=== PATIENT | female | born 1965 | race Caucasian/White ===

== ENCOUNTER 2016-12-26 21:25 | Emergency (ER) | payer OTHER ==
[~2016-12-26] VITALS: Ht 165.1 cm; Wt 113.2 kg
[2016-12-26 21:25] VITALS: TEMP 36.7; Ht 165.1 cm; Wt 113.2 kg
[~2016-12-26 21:25] MED LIST: LEVO175T3 PO; OXYC-57 PO; SERTPOW PO; TRAZ100T29 PO; [UNRECOGNIZED DRUG - OTHER] PO
[2016-12-26 21:54] LABS: MANUAL MICROSCOPIC REQUIRED? NO; REVIEW REQ? NO; URINE APPEARANCE CLEAR (CLEAR); URINE BILIRUBIN NEG (NEG); URINE COLOR DK YELLOW; URINE EPITHELIAL CELL AUTO >30 /lpf (0-5); URINE NITRITE NEG (NEG); URINE PH 5.5 (4.5-7.5); URINE SPECIFIC GRAVITY 1.029 (1.000-1.030); UROBILINOGEN NEG (NEG); ZZUR CULT IF INDIC CLEAN CATCH NO
[2016-12-26 22:12] LABS: BASO ABS # 0.09 K/uL (0-0.2); COMPLETE YES; EOS % 1.8 %; HEMATOCRIT 43.7 % (37-47); IG% 0.2 %; LYMPH % 24.5 %; LYMPH ABS # 2.19 K/uL (1.2-3.4); MEAN CELL VOLUME 91.6 fL (80-100); MEAN CORPUSCULAR HEMOGLOBIN 30.8 pg (25-34); MEAN CORPUSCULAR HGB CONC 33.6 g/dl (32-36); MEAN PLATELET VOLUME 9.7 fL (7.4-10.4); MONO % 7.2 %; NEUT % 65.3 %; PLATELET COUNT 224 K/uL (130-400); RED BLOOD COUNT 4.77 M/uL (4.2-5.4); WHITE BLOOD COUNT 8.93 K/uL (4.8-10.8)
[2016-12-26 22:20] LABS: BENZODIAZEPINE, URINE NEG (NEG); COCAINE,URINE NEG (NEG); PHENCYCLIDINE, URINE NEG (NEG)
[2016-12-26 22:30] LABS: CALCIUM 9.1 mg/dl (8.5-10.1)
[2016-12-26 22:32] LABS: BUN/CREATININE RATIO 16.2 (10-20); CREATININE 0.95 mg/dl (0.60-1.20); POTASSIUM 3.7 mmol/L (3.5-5.1)
[2016-12-26 22:38] LABS: ACETAMINOPHEN < 2 ug/ml (10-30)
[2016-12-26 22:42] LABS: ALB/GLOB RATIO 1.2 (0.9-2); THYROID STIMULATING HORMONE 1.81 uIu/ml (0.300-4.500)
--- NOTE | 2016-12-27 00:56 | EMERGENCY ROOM VISIT NOTE ---
History Report prepared by Екатерина: Lula Puente Under the Supervision of: Dr. Itz Lawson M.D. First contact with patient: 22:40 Chief Complaint: MENTAL HEALTH EVALUATION Stated Complaint: MHID History of Present Illness The patient is a 51 year old female who presents to the Emergency Room with complaints of worsening depression for the past 3 weeks. She arrives to the ED by EMS from home. The patient has had increased suicidal thoughts recently with thoughts of hanging herself. She denies having a plan to hurt herself. The nursing notes indicate that the patient has verbalized a plan to hang herself and the employees at her home are concerned that they cannot keep the patient safe. She currently lives in a assisted. She has a history of depression. She has been under increased stress recently with looking for an apartment. She denies any history of bipolar or schizophrenia. She has a history of hypothyroidism. She denies any history of hypertension. She denies any fever, chest pain, vomiting, abdominal pain, or urinary symptoms. Source of History: patient, nursing staff Onset: 3 weeks Position: other (mental health) Quality: other (depression) Timing: worsening Associated Symptoms: No fevers, No chest pain, No vomiting, No abdominal pain, No urinary symptoms Note: Pt reports suicidal ideation. Review of Systems See HPI for pertinent positives & negatives. A total of 10 systems reviewed and were otherwise negative. Past Medical & Surgical Medical Problems: (1) Alcoh Dep Nec/Nos-Unspec (2) Anxiety State Nos (3) Bipol I, Most Recent Episode (Or Current) Unspecified (4) Depressive Disorder Nec (5) Depressive Disorder Nec (6) Tobacco Use Disorder Surgical Problems: (1) Tubal Ligation Status Family History Diabetes mellitus Heart disease Social History Smoking Status: Current Every Day Smoker Alcohol Use: occasionally Marital Status: Housing Status: unknown Occupation Status: employed Current/Historical Medications Scheduled Levothyroxine Sodium (Levothyroxine Sodium), 175 MCG PO DAILY Sertraline Hcl (Bulk) (Sertraline Hcl), 150 MG PO DAILY Trazodone Hcl (Trazodone), 100 MG PO HS [trinitellix], 20 MG PO DAILY Scheduled PRN Oxycodone/Acetaminophen 5MG/325MG (Percocet 5MG/325MG), 1 TABLET PO Q4H PRN for Pain Allergies Coded Allergies: Sulfa Antibiotics (Verified Allergy, Intermediate, SULFA ALLERGY - UNKOWN , 01/30/16) Cephalexin (Verified Allergy, Unknown, Rash., 01/30/16) Reported by PT. Nitrofurantoin (Verified Adverse Reaction, Intermediate, VOMITING, DIARRHEA, 01/30/16) Physical Exam Vital Signs Date Time Temp Pulse Resp B/P (MAP) Pulse Ox O2 Delivery O2 Flow Rate FiO2 12/26/16 21:25 36.7 89 18 143/92 97 Room Air Physical Exam Constitutional: Vital signs reviewed. Eyes: Pupils are equal round reactive to light. Conjunctiva are noninjected. ENT: Pharynx is clear without erythema or exudate. Mucous membranes are moist. Neck supple without meningeal signs. Respiratory: Clear to auscultation bilaterally. Breath sounds are equal bilaterally. Cardiovascular: Regular rate and rhythm. No rubs or gallops. GI: Soft, nondistended and nontender. Bowel sounds are present. Musculoskeletal: No peripheral edema. No lower extremity tenderness. Integumentary: No cyanosis. Neurological: The patient is awake and alert. No focal deficits. Psychiatric: Depressed affect. She is not tearful. Medical Decision & Procedures Laboratory Results 12/26/16 22:00 Red Blood Count 4.77, Mean Corpuscular Volume 91.6, Mean Corpuscular Hemoglobin 30.8, Mean Corpuscular Hemoglobin Concent 33.6, Mean Platelet Volume 9.7, Neutrophils (%) (Auto) 65.3, Lymphocytes (%) (Auto) 24.5, Monocytes (%) (Auto) 7.2, Eosinophils (%) (Auto) 1.8, Basophils (%) (Auto) 1.0, Neutrophils # (Auto) 5.83, Lymphocytes # (Auto) 2.19, Monocytes # (Auto) 0.64, Eosinophils # (Auto) 0.16, Basophils # (Auto) 0.09 12/26/16 22:00 Test 12/26/16 21:30 12/26/16 22:00 Urine Color DK YELLOW Urine Appearance CLEAR (CLEAR) Urine pH 5.5 (4.5-7.5) Urine Specific [place] 1.029 (1.000-1.030) Urine Protein NEG (NEG) Urine Glucose (UA) NEG (NEG) Urine Ketones TRACE (NEG) Urine Occult Blood NEG (NEG) Urine Nitrite NEG (NEG) Urine Bilirubin NEG (NEG) Urine Urobilinogen NEG (NEG) Urine Leukocyte Esterase TRACE (NEG) Urine WBC (Auto) 5-10 /hpf (0-5) Urine RBC (Auto) 0-4 /hpf (0-4) Urine Hyaline Casts (Auto) 5-10 /lpf (0-5) Urine Epithelial Cells (Auto) >30 /lpf (0-5) Urine Bacteria (Auto) NEG (NEG) Urine Opiates Screen NEG (NEG) Urine Methadone, Qualitative NEG (NEG) Urine Barbiturates NEG (NEG) Urine Phencyclidine (PCP) Level NEG (NEG) Ur Amphetamine/Methamphetamine NEG (NEG) MDMA (Ecstasy) Screen POS (NEG) Urine Benzodiazepines Screen NEG (NEG) Urine Cocaine Metabolite NEG (NEG) Urine Marijuana (THC) NEG (NEG) White Blood Count 8.93 K/uL (4.8-10.8) Red Blood Count 4.77 M/uL (4.2-5.4) Hemoglobin 14.7 g/dL (12.0-16.0) Hematocrit 43.7 % (37-47) Mean Corpuscular Volume 91.6 fL (80-100) Mean Corpuscular Hemoglobin 30.8 pg (25-34) Mean Corpuscular Hemoglobin Concent 33.6 g/dl (32-36) Platelet Count 224 K/uL (130-400) Mean Platelet Volume 9.7 fL (7.4-10.4) Neutrophils (%) (Auto) 65.3 % Lymphocytes (%) (Auto) 24.5 % Monocytes (%) (Auto) 7.2 % Eosinophils (%) (Auto) 1.8 % Basophils (%) (Auto) 1.0 % Neutrophils # (Auto) 5.83 K/uL (1.4-6.5) Lymphocytes # (Auto) 2.19 K/uL (1.2-3.4) Monocytes # (Auto) 0.64 K/uL (0.11-0.59) Eosinophils # (Auto) 0.16 K/uL (0-0.5) Basophils # (Auto) 0.09 K/uL (0-0.2) RDW Standard Deviation 43.6 fL (36.4-46.3) RDW Coefficient of Variation 13.1 % (11.5-14.5) Immature Granulocyte % (Auto) 0.2 % Immature Granulocyte # (Auto) 0.02 K/uL (0.00-0.02) Anion Gap 8.0 mmol/L (3-11) Est Creatinine Clear Calc Drug Dose 85.9 ml/min Estimated GFR () 79.3 Estimated GFR (Non- 68.4 BUN/Creatinine Ratio 16.2 (10-20) Calcium Level 9.1 mg/dl (8.5-10.1) Total Bilirubin 0.4 mg/dl (0.2-1) Aspartate Amino Transf (AST/SGOT) 10 U/L (15-37) Alanine Aminotransferase (ALT/SGPT) 18 U/L (12-78) Alkaline Phosphatase 61 U/L (45-117) Total Protein 7.1 gm/dl (6.4-8.2) Albumin 3.8 gm/dl (3.4-5.0) Globulin 3.3 gm/dl (2.5-4.0) Albumin/Globulin Ratio 1.2 (0.9-2) Thyroid Stimulating Hormone (TSH) 1.810 uIu/ml (0.300-4.500) Salicylates Level 3.7 mg/dl (2.8-20) Acetaminophen Level < 2 ug/ml (10-30) Ethyl Alcohol mg/dL < 3.0 mg/dl (0-3) Laboratory results as reviewed by me. ED Course 2241: The patient was evaluated in room A7. A complete history and physical exam was performed. 2258: The patient has been accepted to [facility] for transfer. 2305: I reevaluated the patient. I discussed the results and treatment plan with her. She will be transferred to [facility] for further care. Transportation will come for her around 0230. Medical Decision This is a 51-year-old female sent to the emergency department for medical clearance. She has been accepted at [facility] psychiatric facility. I did perform a limited focused review of portions of the patient's old chart on the electronic medical record. The patient has had no recent pertinent visits to this hospital. Medication Reconciliation: I attest that I have personally reviewed the patient' s current medication list. Blood Pressure Screening: Patient was found to have an elevated blood pressure and was referred to their primary doctor for recheck and further treatment. I did evaluate the patient as noted above. A urinalysis was sent which appears to be a nonsterile specimen. She denies any urinary symptoms. I did order and review the patient's blood work as noted in the electronic medical record. I did medically clear the patient. She will be transferred securely to [facility] for inpatient psychiatric care. Impression Primary Impression: Mood disorder Additional Impression: Suicidal ideation Scribe Attestation The scribe's documentation has been prepared under my direct and personally reviewed by me in its entirety. I confirm that the note above accurately reflects all work, treatment, procedures, and medical decision making performed by me. Departure Information Dispostion Mental Health Acute Care Referrals Oliver Guthrie III, M.D. (PCP) Forms HOME CARE DOCUMENTATION FORM, IMPORTANT VISIT INFORMATION Patient Instructions My [facility] Problem Qualifiers
[2016-12-27] MEDS ORDERED: BUPRTAB51 PO (01:47)
[2016-12-27] MEDS ORDERED: VORT1TAB3 PO (01:47)
[2016-12-27] MEDS ORDERED: LEVO150T9 PO (01:47)
[2016-12-27] MEDS ORDERED: TRAZ50TA35 PO (01:48)
[2016-12-27] MEDS ORDERED: ABL10 PO (01:48)
[2016-12-27 03:42] VITALS: BP 140/97; PULSE 84; O2SAT 97
== END 2016-12-27 03:35 | disposition short-term general hospital (02) ==
LOC: EDBD 21:25 → C.EDA 21:26
DX: F31.9 Bipolar disorder, unspecified (principal); R45.851 Suicidal ideations; E03.9 Hypothyroidism, unspecified; F41.9 Anxiety disorder, unspecified; F17.210 Nicotine dependence, cigarettes, uncomplicated; Z98.51 Tubal ligation status; Z83.3 Family history of diabetes mellitus; Z79.899 Other long term (current) drug therapy

== ENCOUNTER 2022-04-02 14:44 | Inpatient (IN) ==
[2022-04-02 15:46] LABS: Appearance Urine Clear (Clear); Bacteria Urine Automated Negative (Negative); Bilirubin Urine Negative (Negative); Blood Urine Negative (Negative); Color Urine Yellow; Epithelial Cell Urine Auto 20-30 /lpf (0-5); Glucose Urine UA Negative (Negative); Ketones Urine Negative (Negative); Leukocyte Esterase Urine Trace (Negative); Nitrite Urine Negative (Negative); Protein Urine Negative (Negative); RBC Urine Automated 0-4 /hpf (0-4); Specific Gravity Urine 1.006 (1.000-1.030); Urobilinogen Urine Negative (Negative); pH Urine 5.5 (4.5-7.5)
[2022-04-02 16:00] LABS: Basophils # (auto) 0.11 K/uL (0-0.2); Basophils % (auto) 1.7 %; Eosinophils # (auto) 0.09 K/uL (0-0.50); Eosinophils % (auto) 1.4 %; Hematocrit (blood only) 47.4 % (34.1-44.9); Hemoglobin 16.4 g/dl (12.0-16.0); Immature Granulocytes # (auto) 0.02 K/uL (0.00-0.02); Immature Granulocytes % (auto) 0.3 %; Lymphocytes # (auto) 2.25 K/uL (1.2-3.4); Lymphocytes % (auto) 34.5 %; Mean Corpuscular Hemoglobin 31.1 pg (25.0-34.0); Mean Corpuscular Hgb Conc 34.6 g/dL (32.0-36.0); Mean Corpuscular Volume 89.9 fL (80.0-100.0); Mean Platelet Volume 9.4 fL (9.4-12.3); Monocytes # (auto) 0.56 K/uL (0.24-0.82); Monocytes % (auto) 8.6 %; Neutrophils # (auto) 3.49 K/uL (1.4-6.5); Neutrophils % (auto) 53.5 %; Platelet Count 374 K/uL (130-400); RDW Coefficient of Variation 13.8 % (11.5-14.5); RDW Standard Deviation 45.2 fL (36.4-46.3); Red Blood Count 5.27 M/uL (3.93-5.22); White Blood Count 6.52 K/ul (4.8-10.8)
[2022-04-02 16:01] LABS: Amphetamines+Metham, Urine Neg (Neg); Barbiturates, Urine Neg (Neg); Benzodiazepine, Urine Neg (Neg); Cocaine, Urine Neg (Neg); MDMA (Ecstacy), Urine Neg (Neg); Methadone, Urine Neg (Neg); Opiate, Urine Neg (Neg); Phencyclidine, Urine Neg (Neg)
[2022-04-02 16:30] LABS: Acetaminophen < 3 ug/ml (10-30); Salicylate < 3.0 mg/dl (3.0-30)
[2022-04-02 16:31] LABS: Albumin Globulin Ratio 1.3 (0.9-2); Albumin Level 4.3 gm/dl (3.4-5.0); BUN Creatinine Ratio 11.7 (10-20); Bilirubin,Total 0.5 mg/dl (0.2-1.0); Calcium 9.3 mg/dl (8.5-10.1); Creatinine Clr Calc Pharmacy 217.1 ml/min; Est GFR (African American) 115.6 ml/min; Est GFR (Non-African American) 99.8 ml/min; Globulin 3.4 gm/dl (2.5-4.0); Potassium 3.2 mmol/L (3.5-5.1); Total Protein 7.7 gm/dl (6.0-8.3)
[2022-04-02] MEDS ORDERED: POTASSIUM CHLORIDE 10 MEQ TABCR PO STA (17:35)
--- NOTE | 2022-04-02 17:35 | Emergency Department Note ---
History of Present Illness General Chief complaint: Mental Health Evaluation Stated complaint: suicidal ideation Time Seen by Provider: 04/02/22 14:55 History of Present Illness Provider complaint: suicidal ideation Onset (ago): year(s) 57-year-old female presents emergency department for mental health evaluation. Patient reports that she has been depressed for many years she has been having suicidal ideation for the last many years. Patient reports over the last 2 weeks with some increasing worse. Patient states she tried to overdose 2 weeks ago on Effexor. Patient states she also has plans to hang herself. Patient does admitting to drinking a pint of Contour prior to arrival. No access to guns. History of depression. Home Medications Medication Instructions Recorded Confirmed Type brexpiprazole 1 mg tablet (Rexulti) 1 mg PO QAM 02/23/21 04/02/22 History buspirone 10 mg tablet 10 mg PO BID 02/23/21 04/02/22 History clonazepam 1 mg tablet 1 mg PO TID 02/23/21 04/02/22 History levothyroxine 200 mcg tablet 200 mcg PO QAM 02/23/21 04/02/22 History Allergies Allergy/AdvReac Type Severity Reaction Status Date / Time Sulfa (Sulfonamide Allergy Intermediate SULFA Verified 02/23/21 09:47 Antibiotics) ALLERGY - UNKOWN cephalexin Allergy Unknown Rash. Verified 02/23/21 09:47 nitrofurantoin AdvReac Intermediate VOMITING, Verified 02/23/21 09:47 DIARRHEA Past Med/Surg History Medical History Depression Homelessness No pertinent family history Suicidal ideation Surgical History No significant past surgical history Social History Smoking Status: Current every day smoker Tobacco Type: Cigarettes Preferred Language: Armenian Feels Safe at Home: Yes Review of Systems A total of 10 systems reviewed and were otherwise negative Physical Exam Vital Signs Vital Signs - 24 hr 04/02/22 14:49 Pulse Rate 95 H Pulse Rhythm Regular Pulse Strength Normal Respiratory Rate 22 Respiratory Effort / Characteristics Non-Labored Spontaneous Respiratory Depth Normal Respiratory Pattern Regular Blood Pressure 115/86 Blood Pressure Mean 95 Pulse Oximetry 97 Oxygen Delivery Method Room Air Sepsis Recent Fever Within 48 Hours No Sepsis New/Unexplained Change in Mental Status N/A Sepsis Action Taken by Nursing No Action Required Physical Exam GENERAL: She is oriented to person, place, and time. She appears well-developed and well-nourished. She does not appear distressed. HENT: Exam performed. -Head: Normocephalic and atraumatic. -Right Ear: External ear normal. No mastoid tenderness. -Left Ear: External ear normal. No mastoid tenderness. -Mouth/Throat: The oropharynx is clear and moist. No trismus in the jaw. No dental abscesses or uvula swelling. No oropharyngeal exudate or tonsillar abscesses. EYES: Conjunctivae and EOM are normal. Pupils are equal, round, and reactive to light. Right eye exhibits no discharge. Left eye exhibits no discharge. No scleral icterus. NECK: Normal range of motion. Neck supple. No JVD present. No spinous process tenderness present. No carotid bruit present. No rigidity. No tracheal deviation and normal range of motion present. No Brudzinski's sign and no Kernig's sign noted. CV: Normal rate, regular rhythm, normal heart sounds and intact distal pulses. There is no peripheral edema. Palpable radial pulses bue. PULM/CHEST: Effort normal and breath sounds normal. No respiratory distress. No stridor. She has no wheezes. She has no rales. -Chest Wall: She exhibits no tenderness. ABD: The abdomen is soft. Bowel sounds are normal. She has no distension. No mass is present. There is no tenderness. There is no rebound, no guarding, no Jimenez's sign and no tenderness at McBurney's point. Rovsig negative MUSC/SKEL: Normal range of motion. There is no peripheral edema, tenderness or deformity. LYMPH: No cervical adenopathy. NEURO: She is alert and oriented to person, place, and time. She has normal strength. No cranial nerve deficit or sensory deficit. Coordination and gait normal. GCS eye subscore is 4. GCS verbal subscore is 5. GCS motor subscore is 6. Cerebellar tests wnl. SKIN: Skin is warm and dry. She is not diaphoretic. PSYCH: Patient appears depressed and is reporting suicidal ideation. Course Course 1455: The patient was evaluated in room A6. A complete history and physical exam was performed 1740: Vital signs stable. Potassium 3.2 otherwise labs are within normal limits. Potassium replaced in the emergency department. Serum EtOH 157. Patient will be medically cleared at 1830 from alcohol perspective and will be evaluated by psychiatric case management coordinator at that time. Patient placed in observation at this time. 1933: Patient cleared for psychiatric evaluation awaiting psychiatric evaluation and possible placement. Case signed out to Dr. Thacker Administered Medications Nicotine (Nicotine 14 Mg/24 Hr Patch) 14 mg TD QAM UNIQUE Stop: 05/02/22 17:59 Last Admin: 04/02/22 18:07 Dose: 14 mg Documented By: NOMI Discontinued Medications Potassium Chloride (Potassium Chloride 10 Meq Tabcr) 40 meq PO NOW STA Stop: 04/02/22 17:36 Last Admin: 04/02/22 18:07 Dose: 20 meq Documented By: NOMI Medical Decision Making Laboratory Data Result diagrams: 04/02/22 15:32 04/02/22 15:32 Lab Results 04/02/22 04/02/22 04/02/22 Range/Units 15:04 15:04 15:32 WBC 6.52 (4.8-10.8) K/ul RBC 5.27 H (3.93-5.22) M/uL Hgb 16.4 H (12.0-16.0) g/dl Hct 47.4 H (34.1-44.9) % MCV 89.9 (80.0-100.0) fL MCH 31.1 (25.0-34.0) pg MCHC 34.6 (32.0-36.0) g/dL RDW Std Deviation 45.2 (36.4-46.3) fL RDW Coeff of Hollie 13.8 (11.5-14.5) % Plt Count 374 (130-400) K/uL MPV 9.4 (9.4-12.3) fL Immature Gran % (Auto) 0.3 % Neut % (Auto) 53.5 % Lymph % (Auto) 34.5 % [place] % (Auto) 8.6 % Eos % (Auto) 1.4 % Baso % (Auto) 1.7 % Neut # (Auto) 3.49 (1.4-6.5) K/uL Lymph # (Auto) 2.25 (1.2-3.4) K/uL [place] # (Auto) 0.56 (0.24-0.82) K/uL Eos # (Auto) 0.09 (0-0.50) K/uL Baso # (Auto) 0.11 (0-0.2) K/uL Immature Gran # (Auto) 0.02 (0.00-0.02) K/uL Sodium (136-145) mmol/L Potassium (3.5-5.1) mmol/L Chloride (98-107) mmol/L Carbon Dioxide (21-32) mmol/L Anion Gap (3-11) BUN (6-23) mg/dl Creatinine (0.6-1.2) mg/dl Est Cr Clr Drug Dosing ml/min Est GFR ( Amer) ml/min Est GFR (Non-Af Amer) ml/min BUN/Creatinine Ratio (10-20) Glucose (70-99(Fasting)) mg/dl Calcium (8.5-10.1) mg/dl Total Bilirubin (0.2-1.0) mg/dl AST (13-39) U/L ALT (7-52) U/L Alkaline Phosphatase (34-104) U/L Total Protein (6.0-8.3) gm/dl Albumin (3.4-5.0) gm/dl Globulin (2.5-4.0) gm/dl Albumin/Globulin Ratio (0.9-2) TSH (0.300-4.500) uIu/ml Urine Color Yellow Urine Appearance Clear (Clear) Urine pH 5.5 (4.5-7.5) Ur Specific [place] 1.006 (1.000-1.030) Urine Protein Negative (Negative) Urine Glucose (UA) Negative (Negative) Urine Ketones Negative (Negative) Urine Blood Negative (Negative) Urine Nitrite Negative (Negative) Urine Bilirubin Negative (Negative) Urine Urobilinogen Negative (Negative) Ur Leukocyte Esterase Trace H (Negative) Urine WBC (Auto) 1-5 (0-5) /hpf Urine RBC (Auto) 0-4 (0-4) /hpf U Hyaline Cast (Auto) 1-5 (0-5) /lpf U Epithel Cells (Auto) 20-30 H (0-5) /lpf Urine Bacteria (Auto) Negative (Negative) Salicylates (3.0-30) mg/dl Urine Opiates Screen Neg (Neg) Ur Methadone, Qual Neg (Neg) Acetaminophen (10-30) ug/ml Urine Barbiturates Neg (Neg) Ur Phencyclidine (PCP) Neg (Neg) U Amphetamin/Meth Scrn Neg (Neg) MDMA (Ecstasy) Screen Neg (Neg) U Benzodiazepines Scrn Neg (Neg) Ur Cocaine Metabolite Neg (Neg) U Marijuana (THC) Screen Neg (Neg) Ethyl Alcohol mg/dL (<10.0) mg/dl SARS-CoV-2 (PCR) (Negative) SARS-CoV-2 RNA (SASHA) 04/02/22 04/02/22 04/02/22 Range/Units 15:32 15:32 15:32 WBC (4.8-10.8) K/ul RBC (3.93-5.22) M/uL Hgb (12.0-16.0) g/dl Hct (34.1-44.9) % MCV (80.0-100.0) fL MCH (25.0-34.0) pg MCHC (32.0-36.0) g/dL RDW Std Deviation (36.4-46.3) fL RDW Coeff of Hollie (11.5-14.5) % Plt Count (130-400) K/uL MPV (9.4-12.3) fL Immature Gran % (Auto) % Neut % (Auto) % Lymph % (Auto) % [place] % (Auto) % Eos % (Auto) % Baso % (Auto) % Neut # (Auto) (1.4-6.5) K/uL Lymph # (Auto) (1.2-3.4) K/uL [place] # (Auto) (0.24-0.82) K/uL Eos # (Auto) (0-0.50) K/uL Baso # (Auto) (0-0.2) K/uL Immature Gran # (Auto) (0.00-0.02) K/uL Sodium 143 (136-145) mmol/L Potassium 3.2 L (3.5-5.1) mmol/L Chloride 105 (98-107) mmol/L Carbon Dioxide 24 (21-32) mmol/L Anion Gap 14 H (3-11) BUN 7 (6-23) mg/dl Creatinine 0.60 (0.6-1.2) mg/dl Est Cr Clr Drug Dosing 217.1 ml/min Est GFR ( Amer) 115.6 ml/min Est GFR (Non-Af Amer) 99.8 ml/min BUN/Creatinine Ratio 11.7 (10-20) Glucose 101 H (70-99(Fasting)) mg/dl Calcium 9.3 (8.5-10.1) mg/dl Total Bilirubin 0.5 (0.2-1.0) mg/dl AST 43 H (13-39) U/L ALT 43 (7-52) U/L Alkaline Phosphatase 92 (34-104) U/L Total Protein 7.7 (6.0-8.3) gm/dl Albumin 4.3 (3.4-5.0) gm/dl Globulin 3.4 (2.5-4.0) gm/dl Albumin/Globulin Ratio 1.3 (0.9-2) TSH 0.328 (0.300-4.500) uIu/ml Urine Color Urine Appearance (Clear) Urine pH (4.5-7.5) Ur Specific [place] (1.000-1.030) Urine Protein (Negative) Urine Glucose (UA) (Negative) Urine Ketones (Negative) Urine Blood (Negative) Urine Nitrite (Negative) Urine Bilirubin (Negative) Urine Urobilinogen (Negative) Ur Leukocyte Esterase (Negative) Urine WBC (Auto) (0-5) /hpf Urine RBC (Auto) (0-4) /hpf U Hyaline Cast (Auto) (0-5) /lpf U Epithel Cells (Auto) (0-5) /lpf Urine Bacteria (Auto) (Negative) Salicylates < 3.0 L (3.0-30) mg/dl Urine Opiates Screen (Neg) Ur Methadone, Qual (Neg) Acetaminophen < 3 L (10-30) ug/ml Urine Barbiturates (Neg) Ur Phencyclidine (PCP) (Neg) U Amphetamin/Meth Scrn (Neg) MDMA (Ecstasy) Screen (Neg) U Benzodiazepines Scrn (Neg) Ur Cocaine Metabolite (Neg) U Marijuana (THC) Screen (Neg) Ethyl Alcohol mg/dL (<10.0) mg/dl SARS-CoV-2 (PCR) (Negative) SARS-CoV-2 RNA (SASHA) 04/02/22 04/02/22 04/02/22 Range/Units 15:32 15:49 15:49 WBC (4.8-10.8) K/ul RBC (3.93-5.22) M/uL Hgb (12.0-16.0) g/dl Hct (34.1-44.9) % MCV (80.0-100.0) fL MCH (25.0-34.0) pg MCHC (32.0-36.0) g/dL RDW Std Deviation (36.4-46.3) fL RDW Coeff of Hollie (11.5-14.5) % Plt Count (130-400) K/uL MPV (9.4-12.3) fL Immature Gran % (Auto) % Neut % (Auto) % Lymph % (Auto) % [place] % (Auto) % Eos % (Auto) % Baso % (Auto) % Neut # (Auto) (1.4-6.5) K/uL Lymph # (Auto) (1.2-3.4) K/uL [place] # (Auto) (0.24-0.82) K/uL Eos # (Auto) (0-0.50) K/uL Baso # (Auto) (0-0.2) K/uL Immature Gran # (Auto) (0.00-0.02) K/uL Sodium (136-145) mmol/L Potassium (3.5-5.1) mmol/L Chloride (98-107) mmol/L Carbon Dioxide (21-32) mmol/L Anion Gap (3-11) BUN (6-23) mg/dl Creatinine (0.6-1.2) mg/dl Est Cr Clr Drug Dosing ml/min Est GFR ( Amer) ml/min Est GFR (Non-Af Amer) ml/min BUN/Creatinine Ratio (10-20) Glucose (70-99(Fasting)) mg/dl Calcium (8.5-10.1) mg/dl Total Bilirubin (0.2-1.0) mg/dl AST (13-39) U/L ALT (7-52) U/L Alkaline Phosphatase (34-104) U/L Total Protein (6.0-8.3) gm/dl Albumin (3.4-5.0) gm/dl Globulin (2.5-4.0) gm/dl Albumin/Globulin Ratio (0.9-2) TSH (0.300-4.500) uIu/ml Urine Color Urine Appearance (Clear) Urine pH (4.5-7.5) Ur Specific [place] (1.000-1.030) Urine Protein (Negative) Urine Glucose (UA) (Negative) Urine Ketones (Negative) Urine Blood (Negative) Urine Nitrite (Negative) Urine Bilirubin (Negative) Urine Urobilinogen (Negative) Ur Leukocyte Esterase (Negative) Urine WBC (Auto) (0-5) /hpf Urine RBC (Auto) (0-4) /hpf U Hyaline Cast (Auto) (0-5) /lpf U Epithel Cells (Auto) (0-5) /lpf Urine Bacteria (Auto) (Negative) Salicylates (3.0-30) mg/dl Urine Opiates Screen (Neg) Ur Methadone, Qual (Neg) Acetaminophen (10-30) ug/ml Urine Barbiturates (Neg) Ur Phencyclidine (PCP) (Neg) U Amphetamin/Meth Scrn (Neg) MDMA (Ecstasy) Screen (Neg) U Benzodiazepines Scrn (Neg) Ur Cocaine Metabolite (Neg) U Marijuana (THC) Screen (Neg) Ethyl Alcohol mg/dL 157.4 H (<10.0) mg/dl SARS-CoV-2 (PCR) NEGATIVE (Negative) SARS-CoV-2 RNA (SASHA) Cancelled MDM Narrative Observation note Indication: Psych eval/placement Patient, with depression was first seen at 1455 hrs and the observation time began at 1740 hrs and was necessary in order to have psych evaluation completed . Impression & Plan Depression with suicidal ideation Discharge Plan Visit Data Chief Complaint: Mental Health Evaluation Stated Complaint: suicidal ideation ED Provider: Jim Thacker Discharge Problem: Depression with suicidal ideation Patient Disposition: Still a Patient Forms Stand Alone Forms: My [facility], Suicide Prevention Resources Prescriptions Prescriptions: No Action clonazepam 1 mg tablet 1 mg PO TID buspirone 10 mg tablet 10 mg PO BID levothyroxine 200 mcg tablet 200 mcg PO QAM Rexulti 1 mg tablet 1 mg PO QAM Rx Instructions: has not taken since overdose -"several weeks" Referrals Referrals: Oliver Guthrie MD [Primary Care Provider] -
[2022-04-02] MEDS ORDERED: NICOTINE 14 MG/24 HR PATCH TD SCH (18:00)
[2022-04-02] MEDS ORDERED: clonazePAM 1 MG TAB PO PRN (20:14)
[2022-04-02] MEDS ORDERED: ACETAMINOPHEN 325 MG TAB PO PRN (20:58)
[2022-04-02] MEDS ORDERED: LORazepam 1 MG TAB PO PRN ×3 (20:58)
[2022-04-02] MEDS ORDERED: ALUMINUM/MAGNESIUM SUSP 30 ML UDC PO PRN (20:58)
[2022-04-02] MEDS ORDERED: BISMUTH SUBSALICYLATE LIQD 236 ML PO PRN (20:58)
[2022-04-02] MEDS ORDERED: SODIUM CHLORIDE 0.65% NA SOLN 45 ML (OCEAN) PRN (20:58)
[2022-04-02] MEDS ORDERED: hydrOXYzine HCl 25 MG TAB PO PRN (20:58)
[2022-04-02] MEDS ORDERED: MAGNESIUM HYDROXIDE SUSP 30 ML UDC PO PRN (20:58)
[2022-04-02] MEDS ORDERED: Ativan PO Alcohol Withdrawal--Active Protocol PO PRN (20:58)
[2022-04-02] MEDS ORDERED: busPIRone 5 MG TAB PO SCH (21:00)
[2022-04-02] MEDS ORDERED: MELATONIN 3 MG TAB PO PRN (21:15)
--- NOTE | 2022-04-02 22:34 | Emergency Department Note ---
ED Visit Note Patient is a 57-year-old female who was signed out to me by Dr. Huerta awaiting placement and medically cleared. Patient was accepted to [facility] and admitted on a 201. .
[2022-04-03] MEDS: hydrOXYzine HCl 25 MG TAB PO PRN ×2 (07:29→13:45)
[2022-04-03] MEDS: NICOTINE POLACRILEX 2 MG GUM MT PRN ×3 (08:09→18:39)
[2022-04-03] MEDS: NICOTINE 21 MG/24 HR TDSY TD SCH (08:52)
[2022-04-03] MEDS ORDERED: GABAPENTIN 1200MG ALCOHOL WITHDRAWAL LOAD PO STA (09:53)
[2022-04-03] MEDS ORDERED: GABAPENTIN 600 MG TAB PO ONE (10:00)
[2022-04-03] MEDS ORDERED: NON-FORMULARY MEDICATION (Melatonin 5 mg Tablet) PO PRN (14:26)
[2022-04-03] MEDS ORDERED: ARIPiprazole 5 MG TAB PO ONE (14:28)
[2022-04-03] MEDS: busPIRone 5 MG TAB PO SCH ×2 (15:07→20:39)
[2022-04-03] MEDS: VENLAFAXINE HCL XR 150 MG CAPXR PO SCH (15:08)
[2022-04-03] MEDS: GABAPENTIN 600 MG TAB PO SCH ×2 (15:41→20:39)
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
[2022-04-03] MEDS: FOLIC ACID 1 MG TAB PO SCH (17:42)
[2022-04-03] MEDS: THIAMINE HCL 100 MG TAB PO SCH (17:42)
[2022-04-03] MEDS: clonazePAM 1 MG TAB PO SCH (17:42)
[2022-04-04] MEDS: GABAPENTIN 600 MG TAB PO SCH ×2 (07:13→14:02)
[2022-04-04] MEDS ORDERED: LEVOTHYROXINE SODIUM 200 MCG TABLET PO SCH (08:00)
[2022-04-04] MEDS: busPIRone 5 MG TAB PO SCH (08:28)
[2022-04-04] MEDS: NICOTINE 21 MG/24 HR TDSY TD SCH (08:29)
[2022-04-04] MEDS: THIAMINE HCL 100 MG TAB PO SCH (08:29)
[2022-04-04] MEDS: VENLAFAXINE HCL XR 150 MG CAPXR PO SCH (08:29)
[2022-04-04] MEDS: FOLIC ACID 1 MG TAB PO SCH (08:29)
[2022-04-04] MEDS: clonazePAM 1 MG TAB PO SCH ×2 (08:36→16:52)
[2022-04-04] MEDS ORDERED: ARIPiprazole 5 MG TAB PO SCH (09:00)
[2022-04-04] MEDS: hydrOXYzine HCl 25 MG TAB PO PRN (13:59)
[2022-04-04] MEDS: NICOTINE POLACRILEX 2 MG GUM MT PRN (14:00)
--- NOTE | 2022-04-04 16:28 | Discharge Summary ---
Date of Service April 04, 2022 History of Present Illness Patient presented to ED with plan to OD and admit to taking too much Effexor 2 weeks prior. She states nothing helps and that Klonopin and Rexulti were helpful at the same time. Reviewed that Rexulti is non formulary and she states she has no one to bring it to her. She states her main stressor is living by herslef, "I hate it." She reports no contact with her daughter and that her son "doesn't get depression." She minimizes her drinking, initially admitting to drinking a pint of [employer] or other liquor daily then retracting when concerns were raised about her dosing of Klonopin. It is not clear how often she takes more than 3 mg daily as her most recent rx of 42 pills filled in late February is reportedly gone. She had difficulty elaborating on symptoms as remained med focussed states she would refuse groups and was a limited historian around past med trials which was similar to her presentation here in 2014. She states her sleep is disrupted and not eating well as harder time caring for self in general. States her Effexor was recently increased but she never took the 37.5 mg daily. Physical Exam Psychiatric See admission H&P and DOD assessment. Vital Signs (Past 24 Hours) Last Vital Signs Temp 36.7 C 04/04/22 06:44 Pulse 91 H 04/04/22 06:44 Resp 16 04/04/22 06:44 BP 144/94 H 04/04/22 06:44 Pulse Ox 94 04/03/22 22:00 O2 Del Method 04/03/22 22:00 Principal Diagnosis major depressive disorder Psychiatric Data See daily stay summary. In short, safety was maintained and the patient was uncooperative with care. She was requesting to leave upon admission but did not sign a 72 hr notice. She minimized her drinking and overuse of Klonopin and was placed on AWSS protocol and loaded with Neurontin according to hospital protocol. She did not appear to be experiencing objective signs of withdrawal. Medication changes are summarized below--Abilify substituted for Rexulti as non formulary. She remained med focussed. She ultimately signed a release for a neighbor/friend who was supportive of patient/her discharge. She denied being actively suicidal and was future focussed with return to community programming. She was not receptive to brief intervention around drug or alcohol use. Reviewed that given total daily dose of Klonopin and alcohol, should not be stopped abruptly as not willing to remain hospitalized for remainder of detox. Patient aware these meds can be dangerous in combination with ETOH. She did find the neurontin helpful and was scheduled to start 600 mg BID so the dose will be continued there with lower dose of Klonopin 1 mg Bid with meals. She was only given enough medication to get to her appointment with [facility]. I did speak with Malgorzata Odonnell to coordinate discharge given her misuse of medication and she confirmed she had left rehab early and also calls for early refills and has poor compliance with appointments at [facility]. Due to scheduling she is currently scheduled to see a different provider at [facility] in a few days of discharge. Klonopin likely to be tapered further at that time and Neurontin dosing adjusted. Short supplies of medication given as part of safety plan. Day of Discharge Assessment Today the patient is still requesting discharge and is very concrete, even refusing to meet with me to discuss discharge instructions 1-on-1. It seems that she mainly signed in as out of Klonopin. She denies SI. There is no evidence of delirium or psychosis interfering with her medical decision making. Transition of Care Transition Of Care Record: was reviewed with the patient (attempted, patient refused) Advance Directives Advance Directives Information Provided: Yes Advance Directives: No Mental Health Advance Directive: No Advance Directives on File: No Living Will: No Power of Surveillance Investigator: No Advance Directives Reason:: Declines as Mental Health Visit. Suicide Risk Level Suicide Risk Level Comments: Suicide risk at discharge is deemed low as the patient is no longer requiring 24-hr monitoring. Risk Factors Assessment : Yes Do You Have Access To A Gun?: No Mental Health Diagnoses: Yes Substance Use Disorders: Yes Previous Attempt: Yes Family History of Suicide: Yes Previous Psychiatric Hospitalization: Yes Protective Factors Assessment Employed: No Stable Relationships: No Tobacco Cessation at Discharge Tobacco Cessation Medication Prescribed at Discharge: Offered & Pt Refused Total Time Total Time Spent: Greater Than 30 Minutes Total Time Includes: Examination of the patient, Discharge Planning, Medication Reconciliation and Communication with other providers Discharge Data Lab Results 04/02/22 04/02/22 04/02/22 15:04 15:04 15:32 WBC 6.52 RBC 5.27 H Hgb 16.4 H Hct 47.4 H MCV 89.9 MCH 31.1 MCHC 34.6 RDW Std Deviation 45.2 RDW Coeff of Hollie 13.8 Plt Count 374 MPV 9.4 Immature Gran % (Auto) 0.3 Neut % (Auto) 53.5 Lymph % (Auto) 34.5 [place] % (Auto) 8.6 Eos % (Auto) 1.4 Baso % (Auto) 1.7 Neut # (Auto) 3.49 Lymph # (Auto) 2.25 [place] # (Auto) 0.56 Eos # (Auto) 0.09 Baso # (Auto) 0.11 Immature Gran # (Auto) 0.02 Sodium Potassium Chloride Carbon Dioxide Anion Gap BUN Creatinine Est Cr Clr Drug Dosing Est GFR ( Amer) Est GFR (Non-Af Amer) BUN/Creatinine Ratio Glucose Calcium Total Bilirubin AST ALT Alkaline Phosphatase Total Protein Albumin Globulin Albumin/Globulin Ratio TSH Urine Color Yellow Urine Appearance Clear Urine pH 5.5 Ur Specific [place] 1.006 Urine Protein Negative Urine Glucose (UA) Negative Urine Ketones Negative Urine Blood Negative Urine Nitrite Negative Urine Bilirubin Negative Urine Urobilinogen Negative Ur Leukocyte Esterase Trace H Urine WBC (Auto) 1-5 Urine RBC (Auto) 0-4 U Hyaline Cast (Auto) 1-5 U Epithel Cells (Auto) 20-30 H Urine Bacteria (Auto) Negative Salicylates Urine Opiates Screen Neg Ur Methadone, Qual Neg Acetaminophen Urine Barbiturates Neg Ur Phencyclidine (PCP) Neg U Amphetamin/Meth Scrn Neg MDMA (Ecstasy) Screen Neg U Benzodiazepines Scrn Neg Ur Cocaine Metabolite Neg U Marijuana (THC) Screen Neg Ethyl Alcohol mg/dL SARS-CoV-2 (PCR) SARS-CoV-2 RNA (SASHA) 04/02/22 04/02/22 04/02/22 15:32 15:32 15:32 WBC RBC Hgb Hct MCV MCH MCHC RDW Std Deviation RDW Coeff of Hollie Plt Count MPV Immature Gran % (Auto) Neut % (Auto) Lymph % (Auto) [place] % (Auto) Eos % (Auto) Baso % (Auto) Neut # (Auto) Lymph # (Auto) [place] # (Auto) Eos # (Auto) Baso # (Auto) Immature Gran # (Auto) Sodium 143 Potassium 3.2 L Chloride 105 Carbon Dioxide 24 Anion Gap 14 H BUN 7 Creatinine 0.60 Est Cr Clr Drug Dosing 217.1 Est GFR ( Amer) 115.6 Est GFR (Non-Af Amer) 99.8 BUN/Creatinine Ratio 11.7 Glucose 101 H Calcium 9.3 Total Bilirubin 0.5 AST 43 H ALT 43 Alkaline Phosphatase 92 Total Protein 7.7 Albumin 4.3 Globulin 3.4 Albumin/Globulin Ratio 1.3 TSH 0.328 Urine Color Urine Appearance Urine pH Ur Specific [place] Urine Protein Urine Glucose (UA) Urine Ketones Urine Blood Urine Nitrite Urine Bilirubin Urine Urobilinogen Ur Leukocyte Esterase Urine WBC (Auto) Urine RBC (Auto) U Hyaline Cast (Auto) U Epithel Cells (Auto) Urine Bacteria (Auto) Salicylates < 3.0 L Urine Opiates Screen Ur Methadone, Qual Acetaminophen < 3 L Urine Barbiturates Ur Phencyclidine (PCP) U Amphetamin/Meth Scrn MDMA (Ecstasy) Screen U Benzodiazepines Scrn Ur Cocaine Metabolite U Marijuana (THC) Screen Ethyl Alcohol mg/dL SARS-CoV-2 (PCR) SARS-CoV-2 RNA (SASHA) 04/02/22 04/02/22 04/02/22 15:32 15:49 15:49 WBC RBC Hgb Hct MCV MCH MCHC RDW Std Deviation RDW Coeff of Hollie Plt Count MPV Immature Gran % (Auto) Neut % (Auto) Lymph % (Auto) [place] % (Auto) Eos % (Auto) Baso % (Auto) Neut # (Auto) Lymph # (Auto) [place] # (Auto) Eos # (Auto) Baso # (Auto) Immature Gran # (Auto) Sodium Potassium Chloride Carbon Dioxide Anion Gap BUN Creatinine Est Cr Clr Drug Dosing Est GFR ( Amer) Est GFR (Non-Af Amer) BUN/Creatinine Ratio Glucose Calcium Total Bilirubin AST ALT Alkaline Phosphatase Total Protein Albumin Globulin Albumin/Globulin Ratio TSH Urine Color Urine Appearance Urine pH Ur Specific [place] Urine Protein Urine Glucose (UA) Urine Ketones Urine Blood Urine Nitrite Urine Bilirubin Urine Urobilinogen Ur Leukocyte Esterase Urine WBC (Auto) Urine RBC (Auto) U Hyaline Cast (Auto) U Epithel Cells (Auto) Urine Bacteria (Auto) Salicylates Urine Opiates Screen Ur Methadone, Qual Acetaminophen Urine Barbiturates Ur Phencyclidine (PCP) U Amphetamin/Meth Scrn MDMA (Ecstasy) Screen U Benzodiazepines Scrn Ur Cocaine Metabolite U Marijuana (THC) Screen Ethyl Alcohol mg/dL 157.4 H SARS-CoV-2 (PCR) NEGATIVE SARS-CoV-2 RNA (SASHA) Cancelled Hospital Course (1) Depression with suicidal ideation: (2) Alcohol use disorder: Plan 04/03/22: The patient was admitted to the [facility] ([facility] unit) on q15 min checks (behavioral with suicide precautions) for safety. The patient will participate in group, recreational, and milieu therapies and will be offered additional individual and family sessions as clinically appropriate. Neurontin loading, AWSS protocol. Klonopin cannot be stopped abruptly as likely taking more than 3 mg a day with ETOH. Will given BID with meals Klonopin with additional Ativan based on objective scoring. vitamins. She is only able to tolerate discussion of continuing current meds with Abilify rx in place of non-formulary Rexulti for now. MNPR given withdrawal irritability. Mental Health & Subst Abuse Tx Psychiatrist Name of Psychiatrist: Shannen Patel Psychiatrist's Date of Appointment with Psychiatrist: 04/08/22 Time of Appointment with Psychiatrist: 9:30 AM Psychiatric Appointment Comment: [address], [place] [address] Psychiatrist Release of Information: Obtained, Reviewed and Signed Therapist Name of Therapist: [facility] Therapist's Therapy Appointment Comment: Please resume your normal schedule for therapy appointments. Therapist Release of Information: Obtained, Reviewed and Signed Aviation Safety Inspector Name of Aviation Safety Inspector: [facility] Phone Number for Aviation Safety Inspector: [phone]. [phone] Case Management Appointment Comment: Please contact Trudy to discuss your case management options Aviation Safety Inspector Release of Information: Obtained, Reviewed and Signed Post Discharge Appointments Primary Care Physician Name Of Family Doctor: Yuriy Guthrie Primary Care Provider Appointment Comment: Please follow with your PCP as needed. Primary Care Release of Information: Obtained, Reviewed and Signed Smoking Cessation Counseling Tobacco Cessation Medication Prescribed at Discharge: Offered & Pt Refused Contact Information Discharge Discharge Address: [address], [address], [place] [address] Discharge Plan Discharge Items Patient Disposition: Home - Self-Care Reason For Visit: SI Discharge Diagnosis: major depressive disorder Activity: Resume your previous activity Non-emergency contact: Primary Care Provider, Psychiatrist and Therapist Call non-emergency contact if: you have any medication questions and your symptoms worsen Follow-up/Referrals: Oliver Guthrie MD [Primary Care Provider] - Diet: Regular Addtl Attending Provider Instructions: SPECIAL CARE INSTRUCTIONS: 1. Follow through with your scheduled aftercare appointments. If unable to keep an appointment, please call to reschedule. 2. Take your medication only as prescribed. Medication should not be changed or stopped without the approval of your doctor. In the event of worsening symptoms or concerns about side effects, contact your doctor immediately. 3. Utilize new healthy coping skills, anger management skills, and stress management skills learned during your hospitalization. Journal feelings and process them with a support person. Identify stressors or situations that may result in relapse, deterioration or inappropriate behaviors and develop a plan to deal with those issues. 4. If your coping skills are ineffective and you are in crisis, contact your outpatient providers for direction. If unable to reach your providers, please call the [facility] CRISIS LINE AT , go to the [facility] walk-in center at [address] [place] [address] [facility], or go to the closest Emergency Room. 5. Avoid alcohol and un-prescribed drugs. 6. You have been provided with the Mental Health Advance Directives Pamphlet for your review. 7. Your condition is stable for discharge to outpatient level of care, but recovery is an ongoing process. Ifthoughts to harm yourself or others return, follow the safety plan developed during your stay. Planning for a safe return home includes securing weapons. Our treatment team recommends weaponsbe removed from the home until your outpatient provider reassesses your progress. In rare cases where the items themselvescannot be removed, guns and ammunitionshould be secured separatelyand keys stored by a reliable personoutside of the home. If you were admitted on an involuntary commitment, the police or other legal authorities may be involved in this process. AFTERCARE APPOINTMENTS: * Please call your insurance company prior to your scheduled appointment to confirm your aftercare providers are covered. Take your insurance information to your appointments. WHO TO CALL AND WHEN: Medical Emergencies: For questions or emergencies related to your hospital stay, please contact the Inpatient Behavioral Health Unit at [phone]. A border machine operator is on-call 13/02 for the Behavioral Health Unit for emergencies At any time you feel your situation is an emergency, you may also call 911 immediately. Pending Studies at Discharge: No Stand-Alone Forms: [facility], Smoking Cessation Medications and DC Order Prescriptions: New clonazepam 1 mg Tablet 1 mg PO BIDM Qty: 8 0RF gabapentin 600 mg Tablet 600 mg PO Q12H Qty: 14 0RF Continued buspirone 10 mg tablet 20 mg PO BID levothyroxine 200 mcg tablet 200 mcg PO QAM melatonin 5 mg Tablet 5 mg PO HS PRN (Reason: Insomnia) venlafaxine 150 mg capsule,extended release 24hr 150 mg PO DAILY Qty: 7 0RF Rexulti 3 mg tablet 3 mg PO DAILY 7 Days Qty: 7 0RF Discontinued clonazepam 1 mg tablet 1 mg PO TID venlafaxine 37.5 mg capsule,extended release 24hr 37.5 mg PO DAILY Discharge Orders: Discharge Order (Routine); Ordered 04/04/22 Ordered By: Alina Brice Admission Data Admit Date/Time: 04/02/22 20:59 Attending Provider: Alina Brice Admit Provider: Alina Brice Primary Care Provider: Oliver Guthrie Other Interventions: PSY Interdisciplinary Discharge Planning Last Done: 04/04/22 15:17 Coding Level of Care Code 59760 D/C day mgmt > 30 min Diagnoses Depression with suicidal ideation F32.A; R45.851 Alcohol use disorder
[2022-04-05] MEDS ORDERED: GABAPENTIN 600 MG TAB PO SCH (10:00)
[2022-04-06] MEDS ORDERED: GABAPENTIN 600 MG TAB PO SCH (22:00)
== END 2022-04-04 17:05 | disposition home or self-care (01) | DRG 881 ==
LOC: ED 14:44 → 3S 20:59

== ENCOUNTER 2022-11-16 03:14 | Inpatient (IN) ==
[2022-11-16] MEDS ORDERED: ACETAMINOPHEN 1,000 MG/100 ML VIAL IV STA (03:43)
[2022-11-16] MEDS ORDERED: SODIUM CHLORIDE 0.9% 1000ML 1,000 ML IV SCH ×2 (03:45→06:15)
[2022-11-16 04:09] LABS: Basophils # (auto) 0.07 K/uL (0-0.2); Basophils % (auto) 0.4 %; Eosinophils # (auto) 0.18 K/uL (0-0.50); Eosinophils % (auto) 0.9 %; Hematocrit (blood only) 42.7 % (37.0-47.0); Hemoglobin 14.6 g/dl (12.0-16.0); Immature Granulocytes # (auto) 0.16 K/uL (0.01-0.20); Immature Granulocytes % (auto) 0.8 %; Lymphocytes # (auto) 2.05 K/uL (1.2-3.4); Lymphocytes % (auto) 10.7 %; Mean Corpuscular Hemoglobin 29.2 pg (25.0-34.0); Mean Corpuscular Hgb Conc 34.2 g/dL (32.0-36.0); Mean Corpuscular Volume 85.4 fL (80.0-100.0); Mean Platelet Volume 9.2 fL (9.4-12.4); Monocytes # (auto) 1.38 K/uL (0.11-0.59); Monocytes % (auto) 7.2 %; Neutrophils # (auto) 15.26 K/uL (1.40-6.50); Platelet Count 623 K/uL (130-400); RDW Coefficient of Variation 12.8 % (11.5-14.5); RDW Standard Deviation 39.5 fL (36.4-46.3)
[2022-11-16 04:17] LABS: Albumin Level 3.1 gm/dl (3.4-5.0); Bilirubin,Total 0.7 mg/dl (0.2-1.0); Calcium 9.1 mg/dl (8.6-10.3); Magnesium 1.8 mg/dl (1.7-2.4); Potassium 2.9 mmol/L (3.5-5.1)
[2022-11-16 04:24] LABS: Albumin Globulin Ratio 0.7 (0.9-2); BUN Creatinine Ratio 8.5 (10-20); C Reactive Protein 7.15 mg/dl (0-0.5); Creatinine Clr Calc Pharmacy 88.4 ml/min; Est GFR (African American) 90.8 ml/min; Est GFR (Non-African American) 78.3 ml/min; Globulin 4.5 gm/dl (2.5-4.0); Total Protein 7.6 gm/dl (6.0-8.3)
[2022-11-16 04:37] LABS: INR 1.1 (0.9-1.1); Partial Thromboplastin Ratio 1.1; Partial Thromboplastin Time 31.9 Seconds (21.0-31.0); Prothrombin Time 11.6 Seconds (9.0-12.0)
[2022-11-16] MEDS ORDERED: OPTIRAY 350 100ml IV ONE (04:48)
--- NOTE | 2022-11-16 05:55 | CT Scan Report ---
Exam(s): CT ABDOMEN + PELVIS With Contrast IV Amt: 86 ML OPTIRAY 350 EXAM: CT Abdomen and Pelvis With Intravenous Contrast CLINICAL HISTORY: Reason for exam: abdominal pain. TECHNIQUE: Axial computed tomography images of the abdomen and pelvis with intravenous contrast. CTDI is 19.98 mGy and DLP is 1061.3 mGy-cm. Automated exposure control was utilized for the study. A dose lowering technique was utilized adhering to the principles of ALARA. CONTRAST: Patient received 86 ML OPTIRAY 350 of IV contrast COMPARISON: No relevant prior studies available. FINDINGS: Lung bases: Unremarkable. No mass. No consolidation. ABDOMEN: Liver: Hepatomegaly and Hepatic steatosis. Gallbladder and bile ducts: Cholelithiasis without ductal dilation. Pancreas: Unremarkable. No mass. No ductal dilation. Spleen: Unremarkable. No splenomegaly. Adrenals: Unremarkable. No mass. Kidneys and ureters: Unremarkable. No solid mass. No hydronephrosis. Stomach and bowel: Prominent wall thickening and inflammatory change of the sigmoid colon most suggestive of diverticulitis. Adjacent fluid collection/abscess measuring up to 2.5 cm medial and superior to the sigmoid colon which is also in contact with the adjacent small. Associated reactive ileus and inflammatory change of the adjacent small bowel. No pneumatosis. PELVIS: Appendix: No findings to suggest acute appendicitis. Bladder: Unremarkable. No mass. Reproductive: Unremarkable as visualized. ABDOMEN and PELVIS: Intraperitoneal space: No free air. No significant fluid collection. Bones/joints: Multilevel lumbar spondylosis. No acute fracture. No dislocation. Soft tissues: Unremarkable. Vasculature: No abdominal aortic aneurysm. Lymph nodes: Few prominent mesenteric nodes in the pelvis, likely reactive. IMPRESSION: Findings most consistent with prominent acute sigmoid diverticulitis. Adjacent fluid collection/abscess measuring up to 2.5 cm medial and superior to the sigmoid colon which is also in contact with the adjacent small bowel. Associated reactive ileus and inflammatory change of the adjacent small bowel. No pneumatosis. Follow-up colonoscopy after resolution of symptoms suggested to exclude underlying lesion/process. Electronically signed by: Devin Sorto M.D. 11/16/22 05:54 AM
[2022-11-16] MEDS ORDERED: AMPICILLIN/SULBACTAM SOD 3,000 MG in 0.9 % SODIUM CHLORIDE 100 ML IV STA (06:08)
[2022-11-16] MEDS ORDERED: POTASSIUM CHLORIDE PWD 20 MEQ PACK PO STA (06:26)
[2022-11-16] MEDS ORDERED: PIPERACILLIN/TAZOBACTAM 4.5 GM/120 ML BAG IV STA (06:28)
--- NOTE | 2022-11-16 06:46 | History & Physical Report ---
Date of Service November 16, 2022 Assessment & Plan (1) Sepsis: Plan: Secondary to complicated diverticulitis/diverticular abscess IBD, history Crohn's disease as per records, patient follows up with [facility] hyperlipidemia, not on statin Rx hypothyroidism, euthyroid as of today's TSH COPD, baseline wheezing symptoms as per patient mood disorder, at baseline hyperglycemia likely secondary to prediabetes, hemoglobin A1c of 5.01 May 2022 past alcohol abuse Hypokalemia secondary to diarrhea ongoing tobacco abuse [facility] , Iván General surgery consult Re: Diverticular abscess (ER provider already in touch with Dr. Hawkins.) Bowel rest for now Outpatient GI follow-up Re: Complicated diverticulitis replace potassium nicotine patch DVT prophylaxis per Lovenox subcu Full code Text document was generated using [employer] voice recognition software. It may contain grammatical or spelling errors. Kindly contact undersigned for clarification of any documentation item in question. History of Present Illness Chief Complaint: Abdominal pain Primary Care Provider: Juli Britton, History obtained from patient and records. Medical history significant for IBD, hyperlipidemia, hypothyroidism, COPD, mood disorder, past alcohol abuse, ongoing tobacco abuse. Last confinement March 2022 under psychiatry service for major depression. Two months history of intermittent achy abdominal pain with poor appetite. No fever, no chills, no chest pain, no SOB. No black/bloody stools. Worsening symptoms the last couple of weeks with watery some nausea, no emesis. Diarrhea. MEDICAL HISTORY: As above. SURGERIES: Tubal ligation. FH : BTL, dental surgery PERSONAL AND SOCIAL HISTORY: 1 pack daily, past alcohol abuse, disabled Allergies Allergy/AdvReac Type Severity Reaction Status Date / Time Sulfa (Sulfonamide Allergy Intermediate SULFA Verified 02/23/21 09:47 Antibiotics) ALLERGY - UNKOWN cephalexin Allergy Unknown Rash. Verified 02/23/21 09:47 nitrofurantoin AdvReac Intermediate VOMITING, Verified 02/23/21 09:47 DIARRHEA Home Medications Medication Instructions Recorded Confirmed Type levothyroxine 200 mcg tablet 200 mcg PO QAM 02/23/21 07/14/22 History albuterol sulfate 90 mcg/actuation 2 puff inhalation Q4 PRN Shortness 11/16/22 11/16/22 History aerosol inhaler Of Breath Or Wheezing folic acid 1 mg PO DAILY 11/16/22 11/16/22 History vilazodone 40 mg tablet 40 mg PO DAILY 11/16/22 11/16/22 History Past Med/Surg History Medical History Depression Homelessness No pertinent family history Suicidal ideation Surgical History No significant past surgical history Social History Smoking Status: Current every day smoker Tobacco Type: Cigarettes Preferred Language: Yi Communication Ability: Effective Slate Splitter Required: No Beliefs That Will Affect Care: None Feels Safe at Home: Yes Assistive Devices: Glasses Review of Systems Review of Systems: As per HPI, all other systems reviewed and negative Physical Exam Physical Exam: GENERAL: Slightly uncomfortable, obese, no respiratory distress SKIN: Normal color, warm HEENT: Vera palpebral conjunctivae, no ptosis, dry buccal mucosa NECK : Supple, short neck, no tenderness CHEST : Decreased breath sounds, occasional expiratory wheezes, no tenderness HEART : RRR, no obvious murmurs ABDOMEN: distention, hypogastric tenderness EXTREMITIES : Minimal LE swelling, no LE tenderness, no other conspicuous deformities noted NEUROLOGIC : Coherent, no facial asymmetry, no other gross focality Results & Data Results & Data Vital Signs (Past 12 Hours) Vital Signs Temp Pulse Pulse Resp BP BP Pulse Ox 11/16/22 06:31 91 H 18 125/89 95 11/16/22 03:59 89 11/16/22 03:58 95 H 12 145/102 H 96 11/16/22 03:22 37.2 C 102 H 20 110/78 97 O2 Del Method 11/16/22 06:31 Room Air 11/16/22 03:59 11/16/22 03:58 Room Air 11/16/22 03:22 Room Air Laboratory Results Laboratory Results WBC 19.10 K/ul (4.8-10.8) H 11/16/22 03:45 RBC 5.00 M/uL (4.20-5.40) 11/16/22 03:45 Hgb 14.6 g/dl (12.0-16.0) 11/16/22 03:45 Hct 42.7 % (37.0-47.0) 11/16/22 03:45 MCV 85.4 fL (80.0-100.0) 11/16/22 03:45 MCH 29.2 pg (25.0-34.0) 11/16/22 03:45 MCHC 34.2 g/dL (32.0-36.0) 11/16/22 03:45 RDW Std Deviation 39.5 fL (36.4-46.3) 11/16/22 03:45 RDW Coeff of Hollie 12.8 % (11.5-14.5) 11/16/22 03:45 Plt Count 623 K/uL (130-400) H 11/16/22 03:45 MPV 9.2 fL (9.4-12.4) L 11/16/22 03:45 Immature Gran % (Auto) 0.8 % 11/16/22 03:45 Neut % (Auto) 80.0 % 11/16/22 03:45 Lymph % (Auto) 10.7 % 11/16/22 03:45 Swisher % (Auto) 7.2 % 11/16/22 03:45 Eos % (Auto) 0.9 % 11/16/22 03:45 Baso % (Auto) 0.4 % 11/16/22 03:45 Neut # (Auto) 15.26 K/uL (1.40-6.50) H 11/16/22 03:45 Lymph # (Auto) 2.05 K/uL (1.2-3.4) 11/16/22 03:45 Swisher # (Auto) 1.38 K/uL (0.11-0.59) H 11/16/22 03:45 Eos # (Auto) 0.18 K/uL (0-0.50) 11/16/22 03:45 Baso # (Auto) 0.07 K/uL (0-0.2) 11/16/22 03:45 Immature Gran # (Auto) 0.16 K/uL (0.01-0.20) 11/16/22 03:45 ESR 104 mm/hr (0-30) H 11/16/22 03:45 PT 11.6 Seconds (9.0-12.0) 11/16/22 03:45 INR 1.1 (0.9-1.1) 11/16/22 03:45 APTT 31.9 Seconds (21.0-31.0) H 11/16/22 03:45 PTT Ratio 1.1 11/16/22 03:45 Sodium 136 mmol/L (136-145) 11/16/22 03:45 Potassium 2.9 mmol/L (3.5-5.1) L 11/16/22 03:45 Chloride 100 mmol/L (98-107) 11/16/22 03:45 Carbon Dioxide 24 mmol/L (21-32) 11/16/22 03:45 Anion Gap 12 (3-11) H 11/16/22 03:45 BUN 7 mg/dl (6-23) 11/16/22 03:45 Creatinine 0.82 mg/dl (0.6-1.2) 11/16/22 03:45 Est Cr Clr Drug Dosing 88.4 ml/min 11/16/22 03:45 Est GFR ( Amer) 90.8 ml/min 11/16/22 03:45 Est GFR (Non-Af Amer) 78.3 ml/min 11/16/22 03:45 BUN/Creatinine Ratio 8.5 (10-20) L 11/16/22 03:45 Glucose 178 mg/dl (70-99(Fasting)) H 11/16/22 03:45 Calcium 9.1 mg/dl (8.6-10.3) 11/16/22 03:45 Magnesium 1.8 mg/dl (1.7-2.4) 11/16/22 03:45 Total Bilirubin 0.7 mg/dl (0.2-1.0) 11/16/22 03:45 AST 12 U/L (13-39) L 11/16/22 03:45 ALT 10 U/L (7-52) 11/16/22 03:45 Alkaline Phosphatase 101 U/L (34-104) 11/16/22 03:45 C-Reactive Protein 7.15 mg/dl (0-0.5) H 11/16/22 03:45 Total Protein 7.6 gm/dl (6.0-8.3) 11/16/22 03:45 Albumin 3.1 gm/dl (3.4-5.0) L 11/16/22 03:45 Globulin 4.5 gm/dl (2.5-4.0) H 11/16/22 03:45 Albumin/Globulin Ratio 0.7 (0.9-2) L 11/16/22 03:45 Lipase 19 U/L (11-82) 11/16/22 03:45 Ethyl Alcohol mg/dL < 10.0 mg/dl (<10.0) 11/16/22 03:45 Impressions Abdomen/Pelvis CT 11/16/22 04:27 Exam(s): CT ABDOMEN + PELVIS With Contrast IV Amt: 86 ML OPTIRAY 350 EXAM: CT Abdomen and Pelvis With Intravenous Contrast CLINICAL HISTORY: Reason for exam: abdominal pain. TECHNIQUE: Axial computed tomography images of the abdomen and pelvis with intravenous contrast. CTDI is 19.98 mGy and DLP is 1061.3 mGy-cm. Automated exposure control was utilized for the study. A dose lowering technique was utilized adhering to the principles of ALARA. CONTRAST: Patient received 86 ML OPTIRAY 350 of IV contrast COMPARISON: No relevant prior studies available. FINDINGS: Lung bases: Unremarkable. No mass. No consolidation. ABDOMEN: Liver: Hepatomegaly and Hepatic steatosis. Gallbladder and bile ducts: Cholelithiasis without ductal dilation. Pancreas: Unremarkable. No mass. No ductal dilation. Spleen: Unremarkable. No splenomegaly. Adrenals: Unremarkable. No mass. Kidneys and ureters: Unremarkable. No solid mass. No hydronephrosis. Stomach and bowel: Prominent wall thickening and inflammatory change of the sigmoid colon most suggestive of diverticulitis. Adjacent fluid collection/abscess measuring up to 2.5 cm medial and superior to the sigmoid colon which is also in contact with the adjacent small. Associated reactive ileus and inflammatory change of the adjacent small bowel. No pneumatosis. PELVIS: Appendix: No findings to suggest acute appendicitis. Bladder: Unremarkable. No mass. Reproductive: Unremarkable as visualized. ABDOMEN and PELVIS: Intraperitoneal space: No free air. No significant fluid collection. Bones/joints: Multilevel lumbar spondylosis. No acute fracture. No dislocation. Soft tissues: Unremarkable. Vasculature: No abdominal aortic aneurysm. Lymph nodes: Few prominent mesenteric nodes in the pelvis, likely reactive. IMPRESSION: Findings most consistent with prominent acute sigmoid diverticulitis. Adjacent fluid collection/abscess measuring up to 2.5 cm medial and superior to the sigmoid colon which is also in contact with the adjacent small bowel. Associated reactive ileus and inflammatory change of the adjacent small bowel. No pneumatosis. Follow-up colonoscopy after resolution of symptoms suggested to exclude underlying lesion/process. Electronically signed by: Devin Sorto M.D. 11/16/22 05:54 AM Diagnostic Findings Chest x-ray as per my interpretation atelectasis
[2022-11-16] MEDS ORDERED: oxyCODONE HCL IR 5 MG TAB (IMMEDIATE RELEASE) PO PRN (07:23)
[2022-11-16] MEDS ORDERED: KETOROLAC TROMETHAMINE 15 MG/ML VIAL IV PRN (07:23)
[2022-11-16] MEDS ORDERED: ACETAMINOPHEN 325 MG TAB PO PRN (07:23)
--- NOTE | 2022-11-16 07:48 | XRay Report ---
SINGLE VIEW CHEST CLINICAL HISTORY: Wheezing. FINDINGS: An AP, portable, upright chest radiograph is compared to study dated 03/08/2014 and correlat ed with chest CT dated 03/11/2014. The examination is degraded by portable technique and apical lordot ic positioning. The cardiomediastinal silhouette is unremarkable. Chronic interstitial thickening is similar to previous. There is mild bibasilar scarring/atelectasis. No airspace consolidation or large pleural effusion is identified. No pneumothorax is seen. The skeletal structures are osteopenic. The bony thorax is grossly intact. IMPRESSION: No acute cardiopulmonary abnormality is identified. ACT 112: Negative or not required by law. Electronically signed by: Todd Evans M.D. 11/16/2022 7:46 AM
[2022-11-16] MEDS ORDERED: NSS + 20MEQ KCL 20 MEQ/1,000 ML BAG IV ONE (08:00)
[2022-11-16] MEDS ORDERED: ENOXAPARIN INJ 40 MG/0.4 ML SYR SQ ONE (09:00)
[2022-11-16] MEDS: NICOTINE 14 MG/24 HR PATCH TD SCH (09:10)
[2022-11-16] MEDS ORDERED: ENOXAPARIN INJ 40 MG/0.4 ML SYR SQ SCH (09:31)
[2022-11-16] MEDS: POTASSIUM CHLORIDE / WTR 10 MEQ/100 ML PLCT IV SCH ×2 (09:42→12:20)
[2022-11-16] MEDS ORDERED: POTASSIUM CHLORIDE CRTAB 20 MEQ TABCR PO ONE (10:00)
[2022-11-16] MEDS: FOLIC ACID 1 MG TAB PO SCH (10:45)
[2022-11-16] MEDS: LEVOTHYROXINE SODIUM 200 MCG TABLET PO SCH (10:46)
[2022-11-16] MEDS: PIPERACILLIN/TAZOBACTAM 4.5 GM in DEXTROSE 5% 100 ML IV SCH ×2 (14:45→22:46)
[2022-11-16 17:19] LABS: Amphetamines+Metham, Urine Neg (Neg); Barbiturates, Urine Neg (Neg); Benzodiazepine, Urine Pos (Neg); Cocaine, Urine Neg (Neg); MDMA (Ecstacy), Urine Neg (Neg); Methadone, Urine Neg (Neg); Opiate, Urine Neg (Neg); Phencyclidine, Urine Neg (Neg)
[2022-11-16 17:21] LABS: Appearance Urine Clear (Clear); Bacteria Urine Automated Negative (Negative); Bilirubin Urine Negative (Negative); Blood Urine Negative (Negative); Color Urine Yellow; Epithelial Cell Urine Auto >30 /lpf (0-5); Glucose Urine UA Negative (Negative); Ketones Urine Trace (Negative); Leukocyte Esterase Urine Negative (Negative); Nitrite Urine Negative (Negative); Protein Urine Trace (Negative); RBC Urine Automated 0-4 /hpf (0-4); Specific Gravity Urine 1.043 (1.000-1.030); Urobilinogen Urine Negative (Negative)
--- NOTE | 2022-11-16 17:58 | Hospitalist Progress Note ---
Date of Service November 16, 2022 Assessment & Plan (1) Sepsis: Plan: Secondary to complicated diverticulitis/diverticular abscess History of IBD, history Crohn's disease as per records, patient follows up with [facility] white count is elevated to 19,000 Has been on intravenous Zosyn and IV fluid Appreciate surgery input and recommendation Remained in n.p.o. Hyperlipidemia, not on statin Rx Hypothyroidism, euthyroid as of today's TSH COPD, baseline wheezing symptoms as per patient No acute exacerbation Mood disorder, at baseline Hyperglycemia likely secondary to prediabetes, hemoglobin A1c of 5.01 May 2022 Past alcohol abuse Hypokalemia secondary to diarrhea Has been going on replacement Will monitor Ongoing tobacco abuse Nicotine patch DVT prophylaxis per Lovenox subcu Full code Admission and Anticipated Discharge Date Admission Date: November 16, 2022 Subjective 11/16/2022 The patient was seen and examined in medical floor She was admitted with acute abdominal pain and noted to have diverticular abscess She remained free of pain during examination but did have some tenderness on examination She will be n.p.o. tonight and further evaluation tomorrow morning Denies any other significant symptoms Review of Systems Review of Systems: All systems reviewed and are unremarkable Physical Exam Physical Exam: Lying in bed comfortably Constitutional: well developed, well nourished, + ill appearing and + obese Eyes: PERRL, conjunctivae normal, anicteric sclerae ENMT: external ear and nose normal, oropharynx normal Neck: trachea midline, no thyromegaly Respiratory: no respiratory distress Auscultation: lungs clear to auscultation bilaterally Cardiovascular: Rate/Rhythm: regular rate and regular rhythm; not tachycardic Heart Sounds: normal S1 and normal S2; no murmur Extremities: + edema (Trace edema bilaterally) Gastrointestinal (Abdomen): Inspection/Auscultation: + abdomen distended and normal bowel sounds Percussion/Palpation: + abdomen tender (Mildly tender lower quadrants) and abdomen soft; no guarding Musculoskeletal: No acute arthritis involving any of the joint Neurologic: normal touch/pain/proprioception and moves all extremities; no focal motor deficits Psychiatric: A+Ox3, euthymic affect Lymphatic: no cervical or axillary lymphadenopathy Results & Data Results & Data Vital Signs (Past 12 Hours) Vital Signs Temp Pulse Pulse Pulse Resp BP BP 11/16/22 09:32 36.4 C L 78 14 99/69 L 11/16/22 09:10 11/16/22 09:05 94 H 94 H 20 11/16/22 09:32 36.4 C L 78 14 99/69 L 11/16/22 08:13 102 H 11/16/22 07:05 88 9 L 108/72 11/16/22 06:31 91 H 18 125/89 Pulse Ox O2 Del Method 11/16/22 09:32 96 Room Air 11/16/22 09:10 Room Air 11/16/22 09:05 98 Room Air 11/16/22 09:32 96 Room Air 11/16/22 08:13 11/16/22 07:05 95 11/16/22 06:31 95 Room Air Laboratory Results Short CBC 11/16/22 Range/Units 03:45 WBC 19.10 H (4.8-10.8) K/ul Hgb 14.6 (12.0-16.0) g/dl Hct 42.7 (37.0-47.0) % Plt Count 623 H (130-400) K/uL BMP 11/16/22 03:45 Sodium 136 Potassium 2.9 L Chloride 100 Carbon Dioxide 24 BUN 7 Creatinine 0.82 Glucose 178 H Calcium 9.1 Liver Function 11/16/22 Range/Units 03:45 Total Bilirubin 0.7 (0.2-1.0) mg/dl AST 12 L (13-39) U/L ALT 10 (7-52) U/L Alkaline Phosphatase 101 (34-104) U/L Albumin 3.1 L (3.4-5.0) gm/dl Urine 11/16/22 Range/Units 15:42 Urine Color Yellow Urine Appearance Clear (Clear) Urine pH 6.0 (4.5-7.5) Ur Specific Pateros 1.043 H (1.000-1.030) Urine Protein Trace H (Negative) Urine Glucose (UA) Negative (Negative) Medications Administered Current Inpatient Medications Acetaminophen (Acetaminophen 325 Mg Tab) 650 mg PO Q6H PRN PRN Reason: Fever/pain Stop: 12/16/22 07:22 Enoxaparin Sodium (Enoxaparin Inj 40 Mg/0.4 Ml Syr) 40 mg SQ QAM UNIQUE Stop: 12/17/22 08:59 Folic Acid (Folic Acid 1 Mg Tab) 1 mg PO DAILY UNIQUE Stop: 12/16/22 09:59 Last Admin: 11/16/22 10:45 Dose: 1 mg Potassium Chloride/Sodium Chloride (Normal Saline W/20 Meq Kcl) 20 meq in 1,000 mls @ 80 mls/hr IV .[id number]; Protocol Stop: 11/16/22 20:29 Last Admin: 11/16/22 10:52 Dose: 80 mls/hr Piperacillin Sod/Tazobactam (Sod 4.5 gm/ Dextrose) 120 mls @ 30 mls/hr IV Q8H [facility]; Protocol Stop: 11/26/22 14:59 Last Infusion: 11/16/22 18:45 Dose: Infused Ketorolac Tromethamine (Ketorolac Tromethamine 15 Mg/Ml Vial) 15 mg IV Q6H PRN PRN Reason: Pain Stop: 11/21/22 07:22 Levothyroxine Sodium (Levothyroxine Sodium 200 Mcg Tablet) 200 mcg PO DAILYBB [facility] Stop: 12/16/22 09:30 Last Admin: 11/16/22 10:46 Dose: 200 mcg Lorazepam (Lorazepam 0.5 Mg Tab) 0.5 mg PO TID PRN PRN Reason: Anxiety Stop: 12/16/22 07:22 Miscellaneous (Remove Nicoderm Patch) 1 each N/A DAILY@0859 [facility] Stop: 12/16/22 08:58 Last Admin: 11/16/22 10:24 Dose: 1 each Miscellaneous (Vilazodone ~ Order Awaiting Action) 1 each N/A QS [facility] Stop: 12/16/22 15:59 Last Admin: 11/16/22 17:18 Dose: Not Given Nicotine (Nicotine 14 Mg/24 Hr Patch) 14 mg TD QAM [facility] [place] Stop: 12/16/22 07:29 Last Admin: 11/16/22 09:10 Dose: 14 mg Oxycodone HCl (Oxycodone Hcl Ir 5 Mg Tab (Immediate Release)) 5 - 10 mg PO QID PRN PRN Reason: Pain Stop: 11/30/22 07:22
--- NOTE | 2022-11-16 17:58 | Surgery Consultation ---
Date of Consultation November 16, 2022 Assessment & Plan (1) Diverticulitis: (2) Sepsis: Plan 57 year-old female with history of Crohn's disease presented to ED with a few week history of intermittent abdominal pain with recent chills and nausea found to have sigmoid diverticulitis with associated fluid/abscess measuring 2.5 cm and leukocytosis of 19k. Afebrile here. Hemodynamically stable. Abdomen, soft, tender in mid upper and left abdomen, no peritonitis. Plan: Discussed with patient no surgical intervention required at this time. Continue conservative management with IV fluids, IV antibiotics, bowel rest, antiemetics and pain management as needed. She is scheduled for her first colonoscopy next month with [facility]. This will need to be delayed given acute diverticulitis for another 6-8 weeks. Continue medical management repeat am labs to monitor wbc will follow along Discussed with Dr. Hawkins who agrees with above. Supervising Physician Co-Signing Physician Notes I have seen and examined the patient and agree with above assessment and plan. In brief, she has sigmoid diverticulitis with associated fluid/phlegmon. We will treat her conservatively with IV antibiotics. There is no indication for drainage at this time. We will continue to follow her through her hospital course. History of Present Illness Reason for Consultation: Acute diverticulitis Requesting Physician: Nicho Ortega MD Attending Physician: Roney Krishnan MD History of Present Illness Rina is a 57 year-old female who presented to emergency room with increasing abdominal pain that has been off and on for past few weeks. Has history of Crohn's disease and follows with [facility] but has never been on medications for it. States she is scheduled for colonoscopy in November. Had associated nausea and chills with the abdominal pain. Loose stools but no blood in stools. States she has history of tubal ligation but no other abdominal surgeries. ER work-up included labs which showed leukocytosis of 19k. CT scan of abdomen and pelvis with contrast showing Findings most consistent with prominent acute sigmoid diverticulitis.Adjacent fluid collection/abscess measuring up to 2.5 cm medial and superior to the sigmoid colon which is also in contact with the adjacent small bowel. States she is feeling better, currently rating pain 0/10. No nausea or vom iting. No fevers. States she has never had a colonoscopy. Scheduled for one next month. Allergies Allergy/AdvReac Type Severity Reaction Status Date / Time Sulfa (Sulfonamide Allergy Intermediate SULFA Verified 02/23/21 09:47 Antibiotics) ALLERGY - UNKOWN cephalexin Allergy Unknown Rash. Verified 02/23/21 09:47 nitrofurantoin AdvReac Intermediate VOMITING, Verified 02/23/21 09:47 DIARRHEA Home Medications Medication Instructions Recorded Confirmed Type levothyroxine 200 mcg tablet 200 mcg PO QAM 02/23/21 07/14/22 History albuterol sulfate 90 mcg/actuation 2 puff inhalation Q4 PRN Shortness 11/16/22 11/16/22 History aerosol inhaler Of Breath Or Wheezing folic acid 1 mg PO DAILY 11/16/22 11/16/22 History vilazodone 40 mg tablet 40 mg PO DAILY 11/16/22 11/16/22 History Patient History Medical History Depression Homelessness No pertinent family history Suicidal ideation Surgical History No significant past surgical history Social History Smoking Status: Current every day smoker Tobacco Type: Cigarettes Hx Alcohol Use: No Hx Substance Use: No Preferred Language: Tongan Communication Ability: Effective Time Clock Mechanic Required: No Beliefs That Will Affect Care: None Current Living Situation: Alone Feels Safe at Home: Yes Assistive Devices: None and Wheelchair Review of Systems Review of Systems: All systems reviewed & are unremarkable except as noted in HPI & below Physical Exam Constitutional: WD/WN, vitals as above + obese, cooperative and comfortable; no acute distress and not ill appearing Respiratory: normal respiratory effort, lungs clear to auscultation Cardiovascular: RRR, no murmur, no edema Gastrointestinal (Abdomen): Inspection/Auscultation: abdomen normal to inspection; abdomen not distended Percussion/Palpation: + abdomen tender (Mid upper abdomen and left lateral abdomen) and abdomen soft; no guarding and abdomen not rigid Skin: no rashes, warm and dry Psychiatric: A+Ox3, euthymic affect Results & Data Vital Signs (Past 12 Hours) Vital Signs Temp Pulse Pulse Pulse Resp BP BP 11/16/22 09:32 36.4 C L 78 14 99/69 L 11/16/22 09:10 11/16/22 09:05 94 H 94 H 20 11/16/22 09:32 36.4 C L 78 14 99/69 L 11/16/22 08:13 102 H 11/16/22 07:05 88 9 L 108/72 11/16/22 06:31 91 H 18 125/89 Pulse Ox O2 Del Method 11/16/22 09:32 96 Room Air 11/16/22 09:10 Room Air 11/16/22 09:05 98 Room Air 11/16/22 09:32 96 Room Air 11/16/22 08:13 11/16/22 07:05 95 11/16/22 06:31 95 Room Air Laboratory Results 11/16/22 11/16/22 11/16/22 Range/Units 15:42 15:42 15:42 WBC (4.8-10.8) K/ul RBC (4.20-5.40) M/uL Hgb (12.0-16.0) g/dl Hct (37.0-47.0) % MCV (80.0-100.0) fL MCH (25.0-34.0) pg MCHC (32.0-36.0) g/dL RDW Std Deviation (36.4-46.3) fL RDW Coeff of Hollie (11.5-14.5) % Plt Count (130-400) K/uL MPV (9.4-12.4) fL Immature Gran % (Auto) % Neut % (Auto) % Lymph % (Auto) % [place] % (Auto) % Eos % (Auto) % Baso % (Auto) % Neut # (Auto) (1.40-6.50) K/uL Lymph # (Auto) (1.2-3.4) K/uL [place] # (Auto) (0.11-0.59) K/uL Eos # (Auto) (0-0.50) K/uL Baso # (Auto) (0-0.2) K/uL Immature Gran # (Auto) (0.01-0.20) K/uL ESR (0-30) mm/hr PT (9.0-12.0) Seconds INR (0.9-1.1) APTT (21.0-31.0) Seconds PTT Ratio Sodium (136-145) mmol/L Potassium (3.5-5.1) mmol/L Chloride (98-107) mmol/L Carbon Dioxide (21-32) mmol/L Anion Gap (3-11) BUN (6-23) mg/dl Creatinine (0.6-1.2) mg/dl Est Cr Clr Drug Dosing ml/min Est GFR ( Amer) ml/min Est GFR (Non-Af Amer) ml/min BUN/Creatinine Ratio (10-20) Glucose (70-99(Fasting)) mg/dl Lactate (0.4-2.0) mmol/L Calcium (8.6-10.3) mg/dl Magnesium (1.7-2.4) mg/dl Total Bilirubin (0.2-1.0) mg/dl AST (13-39) U/L ALT (7-52) U/L Alkaline Phosphatase (34-104) U/L C-Reactive Protein (0-0.5) mg/dl Total Protein (6.0-8.3) gm/dl Albumin (3.4-5.0) gm/dl Globulin (2.5-4.0) gm/dl Albumin/Globulin Ratio (0.9-2) Lipase (11-82) U/L TSH (0.300-4.500) uIu/ml Urine Color Yellow Urine Appearance Clear (Clear) Urine pH 6.0 (4.5-7.5) Ur Specific [place] 1.043 H (1.000-1.030) Urine Protein Trace H (Negative) Urine Glucose (UA) Negative (Negative) Urine Ketones Trace H (Negative) Urine Blood Negative (Negative) Urine Nitrite Negative (Negative) Urine Bilirubin Negative (Negative) Urine Urobilinogen Negative (Negative) Ur Leukocyte Esterase Negative (Negative) Urine WBC (Auto) 1-5 (0-5) /hpf Urine RBC (Auto) 0-4 (0-4) /hpf U Hyaline Cast (Auto) 1-5 (0-5) /lpf U Epithel Cells (Auto) >30 H (0-5) /lpf Urine Bacteria (Auto) Negative (Negative) Urine Opiates Screen Neg (Neg) Ur Methadone, Qual Neg (Neg) Urine Barbiturates Neg (Neg) Ur Phencyclidine (PCP) Neg (Neg) U Amphetamin/Meth Scrn Neg (Neg) MDMA (Ecstasy) Screen Neg (Neg) U OH-Alprazolam Confrm Pending U Benzodiazepines Scrn Pos H (Neg) 7-Amino Clonazepam Pending Ur Nordiazepam Confirm Pending U OH-ethylflurazepam Pending U Lorazepam Cnf GC/MS Pending U Oxazepam Confm GC/MS Pending Ur Temazepam Confirm Pending U OH-Triazolam Confirm Pending U OH-Midazolam Confirm Pending Ur Cocaine Metabolite Neg (Neg) U Marijuana (THC) Screen Neg (Neg) Drug Screen Comment Pending Ethyl Alcohol mg/dL (<10.0) mg/dl SARS-CoV-2, RNA, NAAT (NEGATIVE) 11/16/22 11/16/22 11/16/22 Range/Units 06:58 06:30 03:45 WBC (4.8-10.8) K/ul RBC (4.20-5.40) M/uL Hgb (12.0-16.0) g/dl Hct (37.0-47.0) % MCV (80.0-100.0) fL MCH (25.0-34.0) pg MCHC (32.0-36.0) g/dL RDW Std Deviation (36.4-46.3) fL RDW Coeff of Hollie (11.5-14.5) % Plt Count (130-400) K/uL MPV (9.4-12.4) fL Immature Gran % (Auto) % Neut % (Auto) % Lymph % (Auto) % [place] % (Auto) % Eos % (Auto) % Baso % (Auto) % Neut # (Auto) (1.40-6.50) K/uL Lymph # (Auto) (1.2-3.4) K/uL [place] # (Auto) (0.11-0.59) K/uL Eos # (Auto) (0-0.50) K/uL Baso # (Auto) (0-0.2) K/uL Immature Gran # (Auto) (0.01-0.20) K/uL ESR (0-30) mm/hr PT (9.0-12.0) Seconds INR (0.9-1.1) APTT (21.0-31.0) Seconds PTT Ratio Sodium (136-145) mmol/L Potassium (3.5-5.1) mmol/L Chloride (98-107) mmol/L Carbon Dioxide (21-32) mmol/L Anion Gap (3-11) BUN (6-23) mg/dl Creatinine (0.6-1.2) mg/dl Est Cr Clr Drug Dosing ml/min Est GFR ( Amer) ml/min Est GFR (Non-Af Amer) ml/min BUN/Creatinine Ratio (10-20) Glucose (70-99(Fasting)) mg/dl Lactate 0.9 (0.4-2.0) mmol/L Calcium (8.6-10.3) mg/dl Magnesium (1.7-2.4) mg/dl Total Bilirubin (0.2-1.0) mg/dl AST (13-39) U/L ALT (7-52) U/L Alkaline Phosphatase (34-104) U/L C-Reactive Protein (0-0.5) mg/dl Total Protein (6.0-8.3) gm/dl Albumin (3.4-5.0) gm/dl Globulin (2.5-4.0) gm/dl Albumin/Globulin Ratio (0.9-2) Lipase (11-82) U/L TSH 1.608 (0.300-4.500) uIu/ml Urine Color Urine Appearance (Clear) Urine pH (4.5-7.5) Ur Specific [place] (1.000-1.030) Urine Protein (Negative) Urine Glucose (UA) (Negative) Urine Ketones (Negative) Urine Blood (Negative) Urine Nitrite (Negative) Urine Bilirubin (Negative) Urine Urobilinogen (Negative) Ur Leukocyte Esterase (Negative) Urine WBC (Auto) (0-5) /hpf Urine RBC (Auto) (0-4) /hpf U Hyaline Cast (Auto) (0-5) /lpf U Epithel Cells (Auto) (0-5) /lpf Urine Bacteria (Auto) (Negative) Urine Opiates Screen (Neg) Ur Methadone, Qual (Neg) Urine Barbiturates (Neg) Ur Phencyclidine (PCP) (Neg) U Amphetamin/Meth Scrn (Neg) MDMA (Ecstasy) Screen (Neg) U OH-Alprazolam Confrm U Benzodiazepines Scrn (Neg) 7-Amino Clonazepam Ur Nordiazepam Confirm U OH-ethylflurazepam U Lorazepam Cnf GC/MS U Oxazepam Confm GC/MS Ur Temazepam Confirm U OH-Triazolam Confirm U OH-Midazolam Confirm Ur Cocaine Metabolite (Neg) U Marijuana (THC) Screen (Neg) Drug Screen Comment Ethyl Alcohol mg/dL (<10.0) mg/dl SARS-CoV-2, RNA, NAAT NEGATIVE (NEGATIVE) 11/16/22 11/16/22 11/16/22 Range/Units 03:45 03:45 03:45 WBC (4.8-10.8) K/ul RBC (4.20-5.40) M/uL Hgb (12.0-16.0) g/dl Hct (37.0-47.0) % MCV (80.0-100.0) fL MCH (25.0-34.0) pg MCHC (32.0-36.0) g/dL RDW Std Deviation (36.4-46.3) fL RDW Coeff of Hollie (11.5-14.5) % Plt Count (130-400) K/uL MPV (9.4-12.4) fL Immature Gran % (Auto) % Neut % (Auto) % Lymph % (Auto) % [place] % (Auto) % Eos % (Auto) % Baso % (Auto) % Neut # (Auto) (1.40-6.50) K/uL Lymph # (Auto) (1.2-3.4) K/uL [place] # (Auto) (0.11-0.59) K/uL Eos # (Auto) (0-0.50) K/uL Baso # (Auto) (0-0.2) K/uL Immature Gran # (Auto) (0.01-0.20) K/uL ESR 104 H (0-30) mm/hr PT 11.6 (9.0-12.0) Seconds INR 1.1 (0.9-1.1) APTT 31.9 H (21.0-31.0) Seconds PTT Ratio 1.1 Sodium (136-145) mmol/L Potassium (3.5-5.1) mmol/L Chloride (98-107) mmol/L Carbon Dioxide (21-32) mmol/L Anion Gap (3-11) BUN (6-23) mg/dl Creatinine (0.6-1.2) mg/dl Est Cr Clr Drug Dosing ml/min Est GFR ( Amer) ml/min Est GFR (Non-Af Amer) ml/min BUN/Creatinine Ratio (10-20) Glucose (70-99(Fasting)) mg/dl Lactate (0.4-2.0) mmol/L Calcium (8.6-10.3) mg/dl Magnesium (1.7-2.4) mg/dl Total Bilirubin (0.2-1.0) mg/dl AST (13-39) U/L ALT (7-52) U/L Alkaline Phosphatase (34-104) U/L C-Reactive Protein (0-0.5) mg/dl Total Protein (6.0-8.3) gm/dl Albumin (3.4-5.0) gm/dl Globulin (2.5-4.0) gm/dl Albumin/Globulin Ratio (0.9-2) Lipase (11-82) U/L TSH (0.300-4.500) uIu/ml Urine Color Urine Appearance (Clear) Urine pH (4.5-7.5) Ur Specific [place] (1.000-1.030) Urine Protein (Negative) Urine Glucose (UA) (Negative) Urine Ketones (Negative) Urine Blood (Negative) Urine Nitrite (Negative) Urine Bilirubin (Negative) Urine Urobilinogen (Negative) Ur Leukocyte Esterase (Negative) Urine WBC (Auto) (0-5) /hpf Urine RBC (Auto) (0-4) /hpf U Hyaline Cast (Auto) (0-5) /lpf U Epithel Cells (Auto) (0-5) /lpf Urine Bacteria (Auto) (Negative) Urine Opiates Screen (Neg) Ur Methadone, Qual (Neg) Urine Barbiturates (Neg) Ur Phencyclidine (PCP) (Neg) U Amphetamin/Meth Scrn (Neg) MDMA (Ecstasy) Screen (Neg) U OH-Alprazolam Confrm U Benzodiazepines Scrn (Neg) 7-Amino Clonazepam Ur Nordiazepam Confirm U OH-ethylflurazepam U Lorazepam Cnf GC/MS U Oxazepam Confm GC/MS Ur Temazepam Confirm U OH-Triazolam Confirm U OH-Midazolam Confirm Ur Cocaine Metabolite (Neg) U Marijuana (THC) Screen (Neg) Drug Screen Comment Ethyl Alcohol mg/dL < 10.0 (<10.0) mg/dl SARS-CoV-2, RNA, NAAT (NEGATIVE) 11/16/22 11/16/22 Range/Units 03:45 03:45 WBC 19.10 H (4.8-10.8) K/ul RBC 5.00 (4.20-5.40) M/uL Hgb 14.6 (12.0-16.0) g/dl Hct 42.7 (37.0-47.0) % MCV 85.4 (80.0-100.0) fL MCH 29.2 (25.0-34.0) pg MCHC 34.2 (32.0-36.0) g/dL RDW Std Deviation 39.5 (36.4-46.3) fL RDW Coeff of Hollie 12.8 (11.5-14.5) % Plt Count 623 H (130-400) K/uL MPV 9.2 L (9.4-12.4) fL Immature Gran % (Auto) 0.8 % Neut % (Auto) 80.0 % Lymph % (Auto) 10.7 % [place] % (Auto) 7.2 % Eos % (Auto) 0.9 % Baso % (Auto) 0.4 % Neut # (Auto) 15.26 H (1.40-6.50) K/uL Lymph # (Auto) 2.05 (1.2-3.4) K/uL [place] # (Auto) 1.38 H (0.11-0.59) K/uL Eos # (Auto) 0.18 (0-0.50) K/uL Baso # (Auto) 0.07 (0-0.2) K/uL Immature Gran # (Auto) 0.16 (0.01-0.20) K/uL ESR (0-30) mm/hr PT (9.0-12.0) Seconds INR (0.9-1.1) APTT (21.0-31.0) Seconds PTT Ratio Sodium 136 (136-145) mmol/L Potassium 2.9 L (3.5-5.1) mmol/L Chloride 100 (98-107) mmol/L Carbon Dioxide 24 (21-32) mmol/L Anion Gap 12 H (3-11) BUN 7 (6-23) mg/dl Creatinine 0.82 (0.6-1.2) mg/dl Est Cr Clr Drug Dosing 88.4 ml/min Est GFR ( Amer) 90.8 ml/min Est GFR (Non-Af Amer) 78.3 ml/min BUN/Creatinine Ratio 8.5 L (10-20) Glucose 178 H (70-99(Fasting)) mg/dl Lactate (0.4-2.0) mmol/L Calcium 9.1 (8.6-10.3) mg/dl Magnesium 1.8 (1.7-2.4) mg/dl Total Bilirubin 0.7 (0.2-1.0) mg/dl AST 12 L (13-39) U/L ALT 10 (7-52) U/L Alkaline Phosphatase 101 (34-104) U/L C-Reactive Protein 7.15 H (0-0.5) mg/dl Total Protein 7.6 (6.0-8.3) gm/dl Albumin 3.1 L (3.4-5.0) gm/dl Globulin 4.5 H (2.5-4.0) gm/dl Albumin/Globulin Ratio 0.7 L (0.9-2) Lipase 19 (11-82) U/L TSH (0.300-4.500) uIu/ml Urine Color Urine Appearance (Clear) Urine pH (4.5-7.5) Ur Specific [place] (1.000-1.030) Urine Protein (Negative) Urine Glucose (UA) (Negative) Urine Ketones (Negative) Urine Blood (Negative) Urine Nitrite (Negative) Urine Bilirubin (Negative) Urine Urobilinogen (Negative) Ur Leukocyte Esterase (Negative) Urine WBC (Auto) (0-5) /hpf Urine RBC (Auto) (0-4) /hpf U Hyaline Cast (Auto) (0-5) /lpf U Epithel Cells (Auto) (0-5) /lpf Urine Bacteria (Auto) (Negative) Urine Opiates Screen (Neg) Ur Methadone, Qual (Neg) Urine Barbiturates (Neg) Ur Phencyclidine (PCP) (Neg) U Amphetamin/Meth Scrn (Neg) MDMA (Ecstasy) Screen (Neg) U OH-Alprazolam Confrm U Benzodiazepines Scrn (Neg) 7-Amino Clonazepam Ur Nordiazepam Confirm U OH-ethylflurazepam U Lorazepam Cnf GC/MS U Oxazepam Confm GC/MS Ur Temazepam Confirm U OH-Triazolam Confirm U OH-Midazolam Confirm Ur Cocaine Metabolite (Neg) U Marijuana (THC) Screen (Neg) Drug Screen Comment Ethyl Alcohol mg/dL (<10.0) mg/dl SARS-CoV-2, RNA, NAAT (NEGATIVE) Diagnostic Findings Exam(s): CT ABDOMEN + PELVIS With Contrast IV Amt: 86 ML OPTIRAY 350 EXAM: CT Abdomen and Pelvis With Intravenous Contrast CLINICAL HISTORY: Reason for exam: abdominal pain. TECHNIQUE: Axial computed tomography images of the abdomen and pelvis with intravenous contrast. CTDI is 19.98 mGy and DLP is 1061.3 mGy-cm. Automated exposure control was utilized for the study. A dose lowering technique was utilized adhering to the principles of ALARA. CONTRAST: Patient received 86 ML OPTIRAY 350 of IV contrast COMPARISON: No relevant prior studies available. FINDINGS: Lung bases: Unremarkable. No mass. No consolidation. ABDOMEN: Liver: Hepatomegaly and Hepatic steatosis. Gallbladder and bile ducts: Cholelithiasis without ductal dilation. Pancreas: Unremarkable. No mass. No ductal dilation. Spleen: Unremarkable. No splenomegaly. Adrenals: Unremarkable. No mass. Kidneys and ureters: Unremarkable. No solid mass. No hydronephrosis. Stomach and bowel: Prominent wall thickening and inflammatory change of the sigmoid colon most suggestive of diverticulitis. Adjacent fluid collection/abscess measuring up to 2.5 cm medial and superior to the sigmoid colon which is also in contact with the adjacent small. Associated reactive ileus and inflammatory change of the adjacent small bowel. No pneumatosis. PELVIS: Appendix: No findings to suggest acute appendicitis. Bladder: Unremarkable. No mass. Reproductive: Unremarkable as visualized. ABDOMEN and PELVIS: Intraperitoneal space: No free air. No significant fluid collection. Bones/joints: Multilevel lumbar spondylosis. No acute fracture. No dislocation. Soft tissues: Unremarkable. Vasculature: No abdominal aortic aneurysm. Lymph nodes: Few prominent mesenteric nodes in the pelvis, likely reactive. IMPRESSION: Findings most consistent with prominent acute sigmoid diverticulitis. Adjacent fluid collection/abscess measuring up to 2.5 cm medial and superior to the sigmoid colon which is also in contact with the adjacent small bowel. Associated reactive ileus and inflammatory change of the adjacent small bowel. No pneumatosis. Follow-up colonoscopy after resolution of symptoms suggested to exclude underlying lesion/process.
--- NOTE | 2022-11-16 21:33 | Emergency Department Note ---
History of Present Illness General Chief complaint: Abdominal Pain Stated complaint: SEVERE ABDOMINAL PAIN Time Seen by Provider: 11/16/22 03:26 History of Present Illness Maximum Pain Intensity: 8 This is a 57-year-old female presenting to the emergency department for evaluation of worsening abdominal pain over the past day. The patient states that she has a history of Crohn's disease, however this is questionable. She recently began following with [facility] gastroenterology, and evidently had a CT scan more than 10 years ago that showed terminal ileitis. She has never had colonoscopy to confirm the Crohn's disease, and has never been on significant treatment for this process. She is undergoing additional outpatient testing and is scheduled next month for colonoscopy to help delineate her disease process. The patient feels like her Crohn's is flared, and is causing her much more pain than normal. She rates the discomfort an 8/10. No fevers or chills. She feels like she has been eating, drinking, and using the bathroom as normal. Home Medications Medication Instructions Recorded Confirmed Type levothyroxine 200 mcg tablet 200 mcg PO QAM 02/23/21 07/14/22 History albuterol sulfate 90 mcg/actuation 2 puff inhalation Q4 PRN Shortness 11/16/22 11/16/22 History aerosol inhaler Of Breath Or Wheezing folic acid 1 mg PO DAILY 11/16/22 11/16/22 History vilazodone 40 mg tablet 40 mg PO DAILY 11/16/22 11/16/22 History Allergies Allergy/AdvReac Type Severity Reaction Status Date / Time Sulfa (Sulfonamide Allergy Intermediate SULFA Verified 02/23/21 09:47 Antibiotics) ALLERGY - UNKOWN cephalexin Allergy Unknown Rash. Verified 02/23/21 09:47 nitrofurantoin AdvReac Intermediate VOMITING, Verified 02/23/21 09:47 DIARRHEA Past Med/Surg History Medical History Depression Homelessness No pertinent family history Suicidal ideation Surgical History No significant past surgical history Social History Smoking Status: Current every day smoker Tobacco Type: Cigarettes Hx Alcohol Use: No Hx Substance Use: No Preferred Language: Dominican Communication Ability: Effective Sales Planning Coordinator Required: No Beliefs That Will Affect Care: None Current Living Situation: Alone Feels Safe at Home: Yes Assistive Devices: None and Wheelchair Review of Systems A total of 10 systems reviewed and were otherwise negative Physical Exam Vital Signs Vital Signs - 24 hr 11/16/22 03:22 11/16/22 03:58 11/16/22 03:59 Temperature 37.2 C Temperature Source Temporal Artery Scan Pulse Rate 102 H 89 Pulse Rate [Apical] 95 H Pulse Rate from SpO2 Sensor Respiratory Rate 20 12 Respiratory Effort / Characteristics Non-Labored Spontaneous Respiratory Depth Normal Respiratory Pattern Regular Blood Pressure 110/78 Blood Pressure [Right Arm] 145/102 H Blood Pressure Mean 88 Blood Pressure Mean [Right Arm] 116 Blood Pressure Position Sitting Pulse Oximetry 97 96 Oxygen Delivery Method Room Air Room Air Sepsis Recent Fever Within 48 Hours No Sepsis New/Unexplained Change in Mental Status N/A Sepsis Action Taken by Nursing No Action Required 11/16/22 06:31 11/16/22 07:05 Temperature Temperature Source Pulse Rate 88 Pulse Rate [Apical] 91 H Pulse Rate from SpO2 Sensor 89 Respiratory Rate 18 9 L Respiratory Effort / Characteristics Respiratory Depth Respiratory Pattern Blood Pressure 108/72 Blood Pressure [Right Arm] 125/89 Blood Pressure Mean 84 Blood Pressure Mean [Right Arm] 101 Blood Pressure Position Pulse Oximetry 95 95 Oxygen Delivery Method Room Air Sepsis Recent Fever Within 48 Hours Sepsis New/Unexplained Change in Mental Status Sepsis Action Taken by Nursing VITALS: Vitals are noted on the nurse's note and reviewed by myself. Vital signs stable. GENERAL: Well-developed, well-nourished, white female, who is mildly uncomfortable appearing but cooperative and pleasant. HEAD: Normocephalic atraumatic. HEART: Regular rate and rhythm without murmurs gallops or rubs. LUNGS: Clear to auscultation bilaterally without wheezes, rales or rhonchi. No retractions or accessory muscle use. ABDOMEN: Positive normal bowel sounds x 4. Soft, with mild diffuse tenderness. No rebound or guarding. MUSCULOSKELETAL: No muscle atrophy, erythema, or edema noted. Full range of motion in all extremities. NEURO: Patient was alert and oriented to person place and time. CN II through XII grossly intact. Course Administered Medications Folic Acid (Folic Acid 1 Mg Tab) 1 mg PO DAILY UNIQUE Stop: 12/16/22 09:59 Last Admin: 11/16/22 10:45 Dose: 1 mg Documented By: MG Piperacillin Sod/Tazobactam (Sod 4.5 gm/ Dextrose) 120 mls @ 30 mls/hr IV Q8H [facility]; Protocol Stop: 11/26/22 14:59 Last Infusion: 11/16/22 18:45 Dose: 0 mls/hr Documented By: Admin: 11/16/22 14:45 Dose: 30 mls/hr Documented By: Levothyroxine Sodium (Levothyroxine Sodium 200 Mcg Tablet) 200 mcg PO DAILYBB [facility] Stop: 12/16/22 09:30 Last Admin: 11/16/22 10:46 Dose: 200 mcg Documented By: Miscellaneous (Remove Nicoderm Patch) 1 each N/A DAILY@0859 [facility] Stop: 12/16/22 08:58 Last Admin: 11/16/22 10:24 Dose: 1 each Documented By: Miscellaneous (Vilazodone ~ Order Awaiting Action) 1 each N/A QS [facility] Stop: 12/16/22 15:59 Last Admin: 11/16/22 17:18 Dose: Not Given Documented By: FINA Nicotine (Nicotine 14 Mg/24 Hr Patch) 14 mg TD QAM [facility] Stop: 12/16/22 07:29 Last Admin: 11/16/22 09:10 Dose: 14 mg Documented By: JUAN Discontinued Medications Enoxaparin Sodium (Enoxaparin Inj 40 Mg/0.4 Ml Syr) 40 mg SQ QAM ONE Stop: 11/16/22 09:01 Last Admin: 11/16/22 09:10 Dose: 40 mg Documented By: JUAN Sodium Chloride (Nss 1000ml) 1,000 mls @ 999 mls/hr IV .Q1H1M [facility] Stop: 11/16/22 04:45 Last Infusion: 11/16/22 05:22 Dose: 0 mls/hr Documented By: Admin: 11/16/22 03:49 Dose: 999 mls/hr Documented By: JODI Acetaminophen (Ofirmev) 1,000 mg in 100 mls @ 400 mls/hr IV NOW STA Stop: 11/16/22 03:57 Last Admin: 11/16/22 04:01 Dose: Not Given Documented By: JODI Ampicillin Sodium/Sulbactam Sodium 3,000 mg/ Sodium Chloride 108 mls @ 200 mls/hr IV NOW STA; Protocol Stop: 11/16/22 06:40 Last Admin: 11/16/22 06:42 Dose: Not Given Documented By: HH Sodium Chloride (Nss 1000ml) 1,000 mls @ 999 mls/hr IV .Q1H1M UNIQUE Stop: 11/16/22 07:15 Last Infusion: 11/16/22 09:30 Dose: 0 mls/hr Documented By: Admin: 11/16/22 06:29 Dose: 999 mls/hr Documented By: JODI Piperacillin Sod/Tazobactam Sod (Zosyn) 4.5 gm in 120 mls @ 240 mls/hr IV NOW STA Stop: 11/16/22 06:57 Last Infusion: 11/16/22 07:03 Dose: 0 mls/hr Documented By: Admin: 11/16/22 06:33 Dose: 240 mls/hr Documented By: JODI Potassium Chloride/Sodium Chloride (Normal Saline W/20 Meq Kcl) 20 meq in 1,000 mls @ 80 mls/hr IV .[id number] ONE; Protocol Stop: 11/16/22 20:29 Last Admin: 11/16/22 10:52 Dose: 80 mls/hr Documented By: MG Potassium Chloride (K Corey / Wtr) 10 meq in 100 mls @ 100 mls/hr IV Q1H [facility] Stop: 11/16/22 11:14 Last Infusion: 11/16/22 12:21 Dose: 0 mls/hr Documented By: Admin: 11/16/22 12:20 Dose: Not Given Documented By: Infusion: 11/16/22 10:10 Dose: 0 mls/hr Documented By: Admin: 11/16/22 09:42 Dose: 100 mls/hr Documented By: MG Ioversol (Optiray 350 100ml) 100 ml IV ONCE ONE Stop: 11/16/22 04:49 Last Admin: 11/16/22 04:49 Dose: 86 ml Documented By: EFRAÍN Potassium Chloride (Potassium Chloride Pwd 20 Meq Pack) 40 meq PO NOW STA Stop: 11/16/22 06:27 Last Admin: 11/16/22 07:19 Dose: 40 meq Documented By: JUAN Potassium Chloride (Potassium Chloride Crtab 20 Meq Tabcr) 40 meq PO ONE ONE Stop: 11/16/22 10:01 Last Admin: 11/16/22 10:45 Dose: Not Given Documented By: MG Medical Decision Making Differential Diagnosis Differential diagnosis: Etiologies such as biliary colic, cholecystitis, hepatitis, pancreatitis, cardiac disease, pancreatitis, gastritis, peptic ulcer disease, appendicitis, cystitis, diverticulitis, mesenteric ischemia, inflammatory bowel disease, ileus, bowel obstruction, testicular/adnexal torsion, aortic pathology, shingles, as well as others were considered Laboratory Data 11/16/22 03:45 11/16/22 03:45 Lab Results 11/16/22 11/16/22 11/16/22 Range/Units 03:45 03:45 03:45 WBC 19.10 H (4.8-10.8) K/ul RBC 5.00 (4.20-5.40) M/uL Hgb 14.6 (12.0-16.0) g/dl Hct 42.7 (37.0-47.0) % MCV 85.4 (80.0-100.0) fL MCH 29.2 (25.0-34.0) pg MCHC 34.2 (32.0-36.0) g/dL RDW Std Deviation 39.5 (36.4-46.3) fL RDW Coeff of Hollie 12.8 (11.5-14.5) % Plt Count 623 H (130-400) K/uL MPV 9.2 L (9.4-12.4) fL Immature Gran % (Auto) 0.8 % Neut % (Auto) 80.0 % Lymph % (Auto) 10.7 % [place] % (Auto) 7.2 % Eos % (Auto) 0.9 % Baso % (Auto) 0.4 % Neut # (Auto) 15.26 H (1.40-6.50) K/uL Lymph # (Auto) 2.05 (1.2-3.4) K/uL [place] # (Auto) 1.38 H (0.11-0.59) K/uL Eos # (Auto) 0.18 (0-0.50) K/uL Baso # (Auto) 0.07 (0-0.2) K/uL Immature Gran # (Auto) 0.16 (0.01-0.20) K/uL ESR 104 H (0-30) mm/hr PT (9.0-12.0) Seconds INR (0.9-1.1) APTT (21.0-31.0) Seconds PTT Ratio Sodium 136 (136-145) mmol/L Potassium 2.9 L (3.5-5.1) mmol/L Chloride 100 (98-107) mmol/L Carbon Dioxide 24 (21-32) mmol/L Anion Gap 12 H (3-11) BUN 7 (6-23) mg/dl Creatinine 0.82 (0.6-1.2) mg/dl Est Cr Clr Drug Dosing 88.4 ml/min Est GFR ( Amer) 90.8 ml/min Est GFR (Non-Af Amer) 78.3 ml/min BUN/Creatinine Ratio 8.5 L (10-20) Glucose 178 H (70-99(Fasting)) mg/dl Lactate (0.4-2.0) mmol/L Calcium 9.1 (8.6-10.3) mg/dl Magnesium 1.8 (1.7-2.4) mg/dl Total Bilirubin 0.7 (0.2-1.0) mg/dl AST 12 L (13-39) U/L ALT 10 (7-52) U/L Alkaline Phosphatase 101 (34-104) U/L C-Reactive Protein 7.15 H (0-0.5) mg/dl Total Protein 7.6 (6.0-8.3) gm/dl Albumin 3.1 L (3.4-5.0) gm/dl Globulin 4.5 H (2.5-4.0) gm/dl Albumin/Globulin Ratio 0.7 L (0.9-2) Lipase 19 (11-82) U/L TSH (0.300-4.500) uIu/ml Ethyl Alcohol mg/dL (<10.0) mg/dl SARS-CoV-2, RNA, NAAT (NEGATIVE) 11/16/22 11/16/22 11/16/22 Range/Units 03:45 03:45 03:45 WBC (4.8-10.8) K/ul RBC (4.20-5.40) M/uL Hgb (12.0-16.0) g/dl Hct (37.0-47.0) % MCV (80.0-100.0) fL MCH (25.0-34.0) pg MCHC (32.0-36.0) g/dL RDW Std Deviation (36.4-46.3) fL RDW Coeff of Hollie (11.5-14.5) % Plt Count (130-400) K/uL MPV (9.4-12.4) fL Immature Gran % (Auto) % Neut % (Auto) % Lymph % (Auto) % [place] % (Auto) % Eos % (Auto) % Baso % (Auto) % Neut # (Auto) (1.40-6.50) K/uL Lymph # (Auto) (1.2-3.4) K/uL [place] # (Auto) (0.11-0.59) K/uL Eos # (Auto) (0-0.50) K/uL Baso # (Auto) (0-0.2) K/uL Immature Gran # (Auto) (0.01-0.20) K/uL ESR (0-30) mm/hr PT 11.6 (9.0-12.0) Seconds INR 1.1 (0.9-1.1) APTT 31.9 H (21.0-31.0) Seconds PTT Ratio 1.1 Sodium (136-145) mmol/L Potassium (3.5-5.1) mmol/L Chloride (98-107) mmol/L Carbon Dioxide (21-32) mmol/L Anion Gap (3-11) BUN (6-23) mg/dl Creatinine (0.6-1.2) mg/dl Est Cr Clr Drug Dosing ml/min Est GFR ( Amer) ml/min Est GFR (Non-Af Amer) ml/min BUN/Creatinine Ratio (10-20) Glucose (70-99(Fasting)) mg/dl Lactate (0.4-2.0) mmol/L Calcium (8.6-10.3) mg/dl Magnesium (1.7-2.4) mg/dl Total Bilirubin (0.2-1.0) mg/dl AST (13-39) U/L ALT (7-52) U/L Alkaline Phosphatase (34-104) U/L C-Reactive Protein (0-0.5) mg/dl Total Protein (6.0-8.3) gm/dl Albumin (3.4-5.0) gm/dl Globulin (2.5-4.0) gm/dl Albumin/Globulin Ratio (0.9-2) Lipase (11-82) U/L TSH 1.608 (0.300-4.500) uIu/ml Ethyl Alcohol mg/dL < 10.0 (<10.0) mg/dl SARS-CoV-2, RNA, NAAT (NEGATIVE) 11/16/22 11/16/22 Range/Units 06:30 06:58 WBC (4.8-10.8) K/ul RBC (4.20-5.40) M/uL Hgb (12.0-16.0) g/dl Hct (37.0-47.0) % MCV (80.0-100.0) fL MCH (25.0-34.0) pg MCHC (32.0-36.0) g/dL RDW Std Deviation (36.4-46.3) fL RDW Coeff of Hollie (11.5-14.5) % Plt Count (130-400) K/uL MPV (9.4-12.4) fL Immature Gran % (Auto) % Neut % (Auto) % Lymph % (Auto) % [place] % (Auto) % Eos % (Auto) % Baso % (Auto) % Neut # (Auto) (1.40-6.50) K/uL Lymph # (Auto) (1.2-3.4) K/uL [place] # (Auto) (0.11-0.59) K/uL Eos # (Auto) (0-0.50) K/uL Baso # (Auto) (0-0.2) K/uL Immature Gran # (Auto) (0.01-0.20) K/uL ESR (0-30) mm/hr PT (9.0-12.0) Seconds INR (0.9-1.1) APTT (21.0-31.0) Seconds PTT Ratio Sodium (136-145) mmol/L Potassium (3.5-5.1) mmol/L Chloride (98-107) mmol/L Carbon Dioxide (21-32) mmol/L Anion Gap (3-11) BUN (6-23) mg/dl Creatinine (0.6-1.2) mg/dl Est Cr Clr Drug Dosing ml/min Est GFR ( Amer) ml/min Est GFR (Non-Af Amer) ml/min BUN/Creatinine Ratio (10-20) Glucose (70-99(Fasting)) mg/dl Lactate 0.9 (0.4-2.0) mmol/L Calcium (8.6-10.3) mg/dl Magnesium (1.7-2.4) mg/dl Total Bilirubin (0.2-1.0) mg/dl AST (13-39) U/L ALT (7-52) U/L Alkaline Phosphatase (34-104) U/L C-Reactive Protein (0-0.5) mg/dl Total Protein (6.0-8.3) gm/dl Albumin (3.4-5.0) gm/dl Globulin (2.5-4.0) gm/dl Albumin/Globulin Ratio (0.9-2) Lipase (11-82) U/L TSH (0.300-4.500) uIu/ml Ethyl Alcohol mg/dL (<10.0) mg/dl SARS-CoV-2, RNA, NAAT NEGATIVE (NEGATIVE) Imaging Data Radiologist's Impression: Abdomen/Pelvis CT 11/16/22 04:27 Exam(s): CT ABDOMEN + PELVIS With Contrast IV Amt: 86 ML OPTIRAY 350 EXAM: CT Abdomen and Pelvis With Intravenous Contrast CLINICAL HISTORY: Reason for exam: abdominal pain. TECHNIQUE: Axial computed tomography images of the abdomen and pelvis with intravenous contrast. CTDI is 19.98 mGy and DLP is 1061.3 mGy-cm. Automated exposure control was utilized for the study. A dose lowering technique was utilized adhering to the principles of ALARA. CONTRAST: Patient received 86 ML OPTIRAY 350 of IV contrast COMPARISON: No relevant prior studies available. FINDINGS: Lung bases: Unremarkable. No mass. No consolidation. ABDOMEN: Liver: Hepatomegaly and Hepatic steatosis. Gallbladder and bile ducts: Cholelithiasis without ductal dilation. Pancreas: Unremarkable. No mass. No ductal dilation. Spleen: Unremarkable. No splenomegaly. Adrenals: Unremarkable. No mass. Kidneys and ureters: Unremarkable. No solid mass. No hydronephrosis. Stomach and bowel: Prominent wall thickening and inflammatory change of the sigmoid colon most suggestive of diverticulitis. Adjacent fluid collection/abscess measuring up to 2.5 cm medial and superior to the sigmoid colon which is also in contact with the adjacent small. Associated reactive ileus and inflammatory change of the adjacent small bowel. No pneumatosis. PELVIS: Appendix: No findings to suggest acute appendicitis. Bladder: Unremarkable. No mass. Reproductive: Unremarkable as visualized. ABDOMEN and PELVIS: Intraperitoneal space: No free air. No significant fluid collection. Bones/joints: Multilevel lumbar spondylosis. No acute fracture. No dislocation. Soft tissues: Unremarkable. Vasculature: No abdominal aortic aneurysm. Lymph nodes: Few prominent mesenteric nodes in the pelvis, likely reactive. IMPRESSION: Findings most consistent with prominent acute sigmoid diverticulitis. Adjacent fluid collection/abscess measuring up to 2.5 cm medial and superior to the sigmoid colon which is also in contact with the adjacent small bowel. Associated reactive ileus and inflammatory change of the adjacent small bowel. No pneumatosis. Follow-up colonoscopy after resolution of symptoms suggested to exclude underlying lesion/process. Electronically signed by: Devin Sorto M.D. 11/16/22 05:54 AM Chest X-Ray 11/16/22 07:20 SINGLE VIEW CHEST CLINICAL HISTORY: Wheezing. FINDINGS: An AP, portable, upright chest radiograph is compared to study dated 03/08/2014 and correlated with chest CT dated 03/11/2014. The examination is degraded by portable technique and apical lordotic positioning. The cardiomediastinal silhouette is unremarkable. Chronic interstitial thickening is similar to previous. There is mild bibasilar scarring/atelectasis. No airspace consolidation or large pleural effusion is identified. No pneumothorax is seen. The skeletal structures are osteopenic. The bony thorax is grossly intact. IMPRESSION: No acute cardiopulmonary abnormality is identified. ACT 112: Negative or not required by law. Electronically signed by: Todd Evans M.D. 11/16/2022 7:46 AM [facility] Narrative Physical exam and history were performed. Nursing notes, EMR, and Medication List were personally reviewed. No social concerns were identified as barriers to patients care. Patient appears to have abdominal pain bringing her to the ER. There is some question about her reported history of Crohn's disease that is currently being evaluated as an outpatient. She does have some mild diffuse tenderness. IV access was established and labs were obtained. She was hydrated and medicated as above. She was sent to CT scan for imaging. Patient's blood work is as above and was reviewed. She does have a markedly elevated white count of 19,000. There is an associated elevation of her sed rate and CRP. She does not have significant anemia or gross electrolyte imbalance. Lactic acid is negative with blood cultures pending. CT scan was reviewed by myself and radiology. She seems to have acute diverticulitis and small abscess. Case was discussed with the on-call surgical team as well as the on-call hospitalist team. The patient was started on Unasyn here in the ER. COVID was performed and negative. The patient will be evaluated by the hospitalist. Please see their dictation for further patient course, plan, disposition. The chart was completed utilizing [employer] Speech Voice Recognition Software. Grammatical errors, random word insertions, pronoun errors, and incomplete sentences are an occasional consequence of this system due to software limitations, ambient noise, and hardware issues. Any formal questions or concerns about the content, text, or information contained within the body of this dictation should be directly addressed to the provider for clarification. . Impression & Plan Acute diverticulitis, Colonic diverticular abscess Discharge Plan Visit Data Chief Complaint: Abdominal Pain Stated Complaint: SEVERE ABDOMINAL PAIN ED Provider: Jeanette Salas ED Midlevel Provider: Elio Turcios Discharge Problem: Acute diverticulitis, Colonic diverticular abscess Patient Disposition: Admitted As Inpatient Discharge Instructions Interventions: ED Discharge Assessment Last Done: 11/16/22 09:10
[2022-11-17] MEDS: LEVOTHYROXINE SODIUM 200 MCG TABLET PO SCH (06:03)
[2022-11-17] MEDS: PIPERACILLIN/TAZOBACTAM 4.5 GM in DEXTROSE 5% 100 ML IV SCH ×3 (06:03→23:39)
[2022-11-17 06:27] LABS: BUN Creatinine Ratio 6.9 (10-20); Calcium 8.4 mg/dl (8.6-10.3); Est GFR (African American) 116.9 ml/min; Est GFR (Non-African American) 100.9 ml/min; Potassium 2.9 mmol/L (3.5-5.1)
[2022-11-17 06:36] LABS: Basophils # (auto) 0.06 K/uL (0-0.2); Basophils % (auto) 0.7 %; Eosinophils # (auto) 0.14 K/uL (0-0.50); Eosinophils % (auto) 1.7 %; Hematocrit (blood only) 36.7 % (37.0-47.0); Hemoglobin 12.1 g/dl (12.0-16.0); Immature Granulocytes # (auto) 0.09 K/uL (0.01-0.20); Immature Granulocytes % (auto) 1.1 %; Lymphocytes # (auto) 1.93 K/uL (1.2-3.4); Mean Corpuscular Hemoglobin 28.7 pg (25.0-34.0); Mean Corpuscular Volume 87.2 fL (80.0-100.0); Monocytes # (auto) 0.72 K/uL (0.11-0.59); Monocytes % (auto) 8.9 %; Neutrophils # (auto) 5.11 K/uL (1.40-6.50); Neutrophils % (auto) 63.6 %; Platelet Count 459 K/uL (130-400); RDW Coefficient of Variation 12.7 % (11.5-14.5); RDW Standard Deviation 40.7 fL (36.4-46.3); Red Blood Count 4.21 M/uL (4.20-5.40); White Blood Count 8.05 K/ul (4.8-10.8)
[2022-11-17] MEDS: LORazepam 0.5 MG TAB PO PRN ×2 (07:40→15:53)
[2022-11-17] MEDS: NICOTINE 14 MG/24 HR PATCH TD SCH (08:31)
[2022-11-17] MEDS: ENOXAPARIN INJ 40 MG/0.4 ML SYR SQ SCH (08:32)
[2022-11-17] MEDS: FOLIC ACID 1 MG TAB PO SCH (08:32)
[2022-11-17] MEDS: POTASSIUM CHLORIDE 40 MEQ in SODIUM CHLORIDE 0.9% 1000ML 1,000 ML IV SCH ×2 (09:16→20:15)
[2022-11-17] MEDS: GABAPENTIN 100 MG CAP PO SCH ×2 (10:46→21:33)
--- NOTE | 2022-11-17 16:43 | Hospitalist Progress Note ---
Date of Service November 17, 2022 Assessment & Plan (1) Sepsis: Plan: Secondary to complicated diverticulitis/diverticular abscess History of IBD, history Crohn's disease as per records, patient follows up with [facility] GI white count is elevated to 19,000 Has been on intravenous Zosyn and IV fluid Appreciate surgery input and recommendation Remained in n.p.o. Has been tolerating clears orally Clinically much better and white count has been normalized and abdominal sy mptoms are almost resolved We will advance diet as tolerated from tomorrow Hyperlipidemia, not on statin Rx Hypothyroidism, euthyroid as of today's TSH COPD, baseline wheezing symptoms as per patient No acute exacerbation Mood disorder, at baseline Hyperglycemia likely secondary to prediabetes, hemoglobin A1c of 5.01 May 2022 Past alcohol abuse Hypokalemia secondary to diarrhea Has been going on replacement Potassium remains low at 2.9-we will continue intravenous fluid and potassium replacement Monitor electrolytes Ongoing tobacco abuse Nicotine patch DVT prophylaxis per Lovenox subcu Full code Admission and Anticipated Discharge Date Admission Date: November 16, 2022 Subjective 11/16/2022 The patient was seen and examined in medical floor She was admitted with acute abdominal pain and noted to have diverticular abscess She remained free of pain during examination but did have some tenderness on examination She will be n.p.o. tonight and further evaluation tomorrow morning Denies any other significant symptoms 11/17/2022 The patient was seen and examined in medical floor She has been feeling much better and tolerating clear liquid diet Denies any abdominal pain, nausea and or vomiting and no increase in white count Review of Systems Review of Systems: All systems reviewed and are unremarkable Physical Exam Physical Exam: Lying in bed comfortably Constitutional: well developed, well nourished, + ill appearing and + obese Eyes: PERRL, conjunctivae normal, anicteric sclerae ENMT: external ear and nose normal, oropharynx normal Neck: trachea midline, no thyromegaly Respiratory: no respiratory distress Auscultation: lungs clear to au scultation bilaterally Cardiovascular: Rate/Rhythm: regular rate and regular rhythm; not tachycardic Heart Sounds: normal S1 and normal S2; no murmur Extremities: + edema (Trace edema bilaterally) Gastrointestinal (Abdomen): Inspection/Auscultation: + abdomen distended and normal bowel sounds Percussion/Palpation: + abdomen tender (Mildly tender lower quadrants) and abdomen soft; no guarding Musculoskeletal: No acute arthritis involving any joint Neurologic: normal touch/pain/proprioception and moves all extremities; no f ocal motor deficits Psychiatric: A+Ox3, euthymic affect Lymphatic: no cervical or axillary lymphadenopathy Results & Data Results & Data Vital Signs (Past 12 Hours) Vital Signs Temp Pulse Resp BP Pulse Ox O2 Del Method 11/17/22 14:40 36.6 C 75 16 115/78 94 Room Air 11/17/22 07:25 36.6 C 79 16 115/75 94 Room Air Laboratory Results Short CBC 11/17/22 Range/Units 05:40 WBC 8.05 (4.8-10.8) K/ul Hgb 12.1 (12.0-16.0) g/dl Hct 36.7 L (37.0-47.0) % Plt Count 459 H (130-400) K/uL BMP 11/17/22 05:40 Sodium 142 Potassium 2.9 L Chloride 107 Carbon Dioxide 27 BUN 4 L Creatinine 0.58 L Glucose 92 Calcium 8.4 L Urine 11/16/22 Range/Units 15:42 Urine Color Yellow Urine Appearance Clear (Clear) Urine pH 6.0 (4.5-7.5) Ur Specific [place] 1.043 H (1.000-1.030) Urine Protein Trace H (Negative) Urine Glucose (UA) Negative (Negative) Medications Administered Current Inpatient Medications Acetaminophen (Acetaminophen 325 Mg Tab) 650 mg PO Q6H PRN PRN Reason: Fever/pain Stop: 12/16/22 07:22 Enoxaparin Sodium (Enoxaparin Inj 40 Mg/0.4 Ml Syr) 40 mg SQ QAM UNIQUE Stop: 12/17/22 08:59 Last Admin: 11/17/22 08:32 Dose: 40 mg Folic Acid (Folic Acid 1 Mg Tab) 1 mg PO DAILY UNIQUE Stop: 12/16/22 09:59 Last Admin: 11/17/22 08:32 Dose: 1 mg Gabapentin (Gabapentin 100 Mg Cap) 100 mg PO BID UNIQUE Stop: 12/17/22 10:14 Last Admin: 11/17/22 10:46 Dose: 100 mg Piperacillin Sod/Tazobactam (Sod 4.5 gm/ Dextrose) 120 mls @ 30 mls/hr IV Q8H [facility]; Protocol Stop: 11/26/22 14:59 Last Admin: 11/17/22 15:53 Dose: 30 mls/hr Potassium Chloride 40 meq/ (Sodium Chloride) 1,020 mls @ 80 mls/hr IV .[id number] [facility]; Protocol Stop: 12/17/22 08:59 Last Admin: 11/17/22 09:16 Dose: 80 mls/hr Ketorolac Tromethamine (Ketorolac Tromethamine 15 Mg/Ml Vial) 15 mg IV Q6H PRN PRN Reason: Pain Stop: 11/21/22 07:22 Levothyroxine Sodium (Levothyroxine Sodium 200 Mcg Tablet) 200 mcg PO DAILYBB [facility] Stop: 12/16/22 09:30 Last Admin: 11/17/22 06:03 Dose: 200 mcg Lorazepam (Lorazepam 0.5 Mg Tab) 0.5 mg PO TID PRN PRN Reason: Anxiety Stop: 12/16/22 07:22 Last Admin: 11/17/22 15:53 Dose: 0.5 mg Miscellaneous (Remove Nicoderm Patch) 1 each N/A DAILY@0859 [facility] Stop: 12/16/22 08:58 Last Admin: 11/17/22 08:31 Dose: 1 each Miscellaneous (Vilazodone ~ Order Awaiting Action) 1 each N/A QS [facility] Stop: 12/16/22 15:59 Last Admin: 11/17/22 08:31 Dose: Not Given Nicotine (Nicotine 14 Mg/24 Hr Patch) 14 mg TD QAM [facility] Stop: 12/16/22 07:29 Last Admin: 11/17/22 08:31 Dose: 14 mg Oxycodone HCl (Oxycodone Hcl Ir 5 Mg Tab (Immediate Release)) 5 - 10 mg PO QID PRN PRN Reason: Pain Stop: 11/30/22 07:22
--- NOTE | 2022-11-17 17:09 | Surgery Progress Note ---
Date of Service November 17, 2022 Assessment & Plan (1) Diverticulitis: (2) Sepsis: Plan 57 year-old female with history of Crohn's disease presented to ED with a few week history of intermittent abdominal pain with recent chills and nausea found to have sigmoid diverticulitis with associated fluid/abscess measuring 2.5 cm and leukocytosis of 19k. 11/17/2022: afebrile, vss leukocytosis resolved pain improving + bowel function Plan: Continue conservative management . Would likely benefit from another day of IV antibiotics and transition to oral for total course of 14 days of antibiotics. She is scheduled for her first colonoscopy next month with [facility]. This w ill need to be delayed given acute diverticulitis for another 6-8 weeks. okay to start clear liquids Continue medical management Dr. Hawkins has seen and examined pt, agrees with above. Admission and Anticipated Discharge Date Admission Date: November 16, 2022 Supervising Physician Co-Signing Physician Notes I have seen and examined the patient and agree with the above assessment plan. She is improving on IV antibiotics. We will advance her diet as tolerated. She may be able to be discharged tomorrow on oral antibiotics. Subjective not feeling well today, wants to get out of here, nothing to do and anxious about getting home abdominal pain better today, only pain when examined no n,v passing bowel movement and gas no blood in stools Physical Exam Constitutional: WD/WN, vitals as above comfortable and + overweight; no acute distress and not ill appearing Gastrointestinal (Abdomen): Inspection/Auscultation: abdomen normal to inspection; abdomen not distended Percussion/Palpation: + abdomen tender (left mid to lower abdomen, improved) and abdomen soft; no guarding and abdomen not rigid Skin: no rashes, warm and dry Psychiatric: Orientation: alert and oriented x 3 Affect: + anxious affect Results & Data Vital Signs (Past 12 Hours) Vital Signs Temp Pulse Resp BP Pulse Ox O2 Del Method 11/17/22 14:40 36.6 C 75 16 115/78 94 Room Air 11/17/22 07:25 36.6 C 79 16 115/75 94 Room Air Laboratory Results 11/17/22 11/17/22 11/16/22 Range/Units 05:40 05:40 19:07 WBC 8.05 (4.8-10.8) K/ul RBC 4.21 (4.20-5.40) M/uL Hgb 12.1 (12.0-16.0) g/dl Hct 36.7 L (37.0-47.0) % MCV 87.2 (80.0-100.0) fL MCH 28.7 (25.0-34.0) pg MCHC 33.0 (32.0-36.0) g/dL RDW Std Deviation 40.7 (36.4-46.3) fL RDW Coeff of Hollie 12.7 (11.5-14.5) % Plt Count 459 H (130-400) K/uL MPV 9.0 L (9.4-12.4) fL Immature Gran % (Auto) 1.1 % Neut % (Auto) 63.6 % Lymph % (Auto) 24.0 % [place] % (Auto) 8.9 % Eos % (Auto) 1.7 % Baso % (Auto) 0.7 % Neut # (Auto) 5.11 (1.40-6.50) K/uL Lymph # (Auto) 1.93 (1.2-3.4) K/uL [place] # (Auto) 0.72 H (0.11-0.59) K/uL Eos # (Auto) 0.14 (0-0.50) K/uL Baso # (Auto) 0.06 (0-0.2) K/uL Immature Gran # (Auto) 0.09 (0.01-0.20) K/uL Sodium 142 (136-145) mmol/L Potassium 2.9 L (3.5-5.1) mmol/L Chloride 107 (98-107) mmol/L Carbon Dioxide 27 (21-32) mmol/L Anion Gap 8 (3-11) BUN 4 L (6-23) mg/dl Creatinine 0.58 L (0.6-1.2) mg/dl Est Cr Clr Drug Dosing 125.0 ml/min Est GFR ( Amer) 116.9 ml/min Est GFR (Non-Af Amer) 100.9 ml/min BUN/Creatinine Ratio 6.9 L (10-20) Glucose 92 (70-99(Fasting)) mg/dl Calcium 8.4 L (8.6-10.3) mg/dl Urine Color Urine Appearance (Clear) Urine pH (4.5-7.5) Ur Specific [place] (1.000-1.030) Urine Protein (Negative) Urine Glucose (UA) (Negative) Urine Ketones (Negative) Urine Blood (Negative) Urine Nitrite (Negative) Urine Bilirubin (Negative) Urine Urobilinogen (Negative) Ur Leukocyte Esterase (Negative) Urine WBC (Auto) (0-5) /hpf Urine RBC (Auto) (0-4) /hpf U Hyaline Cast (Auto) (0-5) /lpf U Epithel Cells (Auto) (0-5) /lpf Urine Bacteria (Auto) (Negative) Stl C. diff Tox B Gene Negative Cdiff Gene (Neg) Urine Opiates Screen (Neg) Ur Methadone, Qual (Neg) Urine Barbiturates (Neg) Ur Phencyclidine (PCP) (Neg) U Amphetamin/Meth Scrn (Neg) MDMA (Ecstasy) Screen (Neg) U OH-Alprazolam Confrm U Benzodiazepines Scrn (Neg) 7-Amino Clonazepam Ur Nordiazepam Confirm U OH-ethylflurazepam U Lorazepam Cnf GC/MS U Oxazepam Confm GC/MS Ur Temazepam Confirm U OH-Triazolam Confirm U OH-Midazolam Confirm Ur Cocaine Metabolite (Neg) U Marijuana (THC) Screen (Neg) Drug Screen Comment 11/16/22 11/16/22 11/16/22 Range/Units 15:42 15:42 15:42 WBC (4.8-10.8) K/ul RBC (4.20-5.40) M/uL Hgb (12.0-16.0) g/dl Hct (37.0-47.0) % MCV (80.0-100.0) fL MCH (25.0-34.0) pg MCHC (32.0-36.0) g/dL RDW Std Deviation (36.4-46.3) fL RDW Coeff of Hollie (11.5-14.5) % Plt Count (130-400) K/uL MPV (9.4-12.4) fL Immature Gran % (Auto) % Neut % (Auto) % Lymph % (Auto) % [place] % (Auto) % Eos % (Auto) % Baso % (Auto) % Neut # (Auto) (1.40-6.50) K/uL Lymph # (Auto) (1.2-3.4) K/uL [place] # (Auto) (0.11-0.59) K/uL Eos # (Auto) (0-0.50) K/uL Baso # (Auto) (0-0.2) K/uL Immature Gran # (Auto) (0.01-0.20) K/uL Sodium (136-145) mmol/L Potassium (3.5-5.1) mmol/L Chloride (98-107) mmol/L Carbon Dioxide (21-32) mmol/L Anion Gap (3-11) BUN (6-23) mg/dl Creatinine (0.6-1.2) mg/dl Est Cr Clr Drug Dosing ml/min Est GFR ( Amer) ml/min Est GFR (Non-Af Amer) ml/min BUN/Creatinine Ratio (10-20) Glucose (70-99(Fasting)) mg/dl Calcium (8.6-10.3) mg/dl Urine Color Yellow Urine Appearance Clear (Clear) Urine pH 6.0 (4.5-7.5) Ur Specific [place] 1.043 H (1.000-1.030) Urine Protein Trace H (Negative) Urine Glucose (UA) Negative (Negative) Urine Ketones Trace H (Negative) Urine Blood Negative (Negative) Urine Nitrite Negative (Negative) Urine Bilirubin Negative (Negative) Urine Urobilinogen Negative (Negative) Ur Leukocyte Esterase Negative (Negative) Urine WBC (Auto) 1-5 (0-5) /hpf Urine RBC (Auto) 0-4 (0-4) /hpf U Hyaline Cast (Auto) 1-5 (0-5) /lpf U Epithel Cells (Auto) >30 H (0-5) /lpf Urine Bacteria (Auto) Negative (Negative) Stl C. diff Tox B Gene (Neg) Urine Opiates Screen Neg (Neg) Ur Methadone, Qual Neg (Neg) Urine Barbiturates Neg (Neg) Ur Phencyclidine (PCP) Neg (Neg) U Amphetamin/Meth Scrn Neg (Neg) MDMA (Ecstasy) Screen Neg (Neg) U OH-Alprazolam Confrm Pending U Benzodiazepines Scrn Pos H (Neg) 7-Amino Clonazepam Pending Ur Nordiazepam Confirm Pending U OH-ethylflurazepam Pending U Lorazepam Cnf GC/MS Pending U Oxazepam Confm GC/MS Pending Ur Temazepam Confirm Pending U OH-Triazolam Confirm Pending U OH-Midazolam Confirm Pending Ur Cocaine Metabolite Neg (Neg) U Marijuana (THC) Screen Neg (Neg) Drug Screen Comment Pending
[2022-11-17] MEDS ORDERED: POTASSIUM CHLORIDE CRTAB 20 MEQ TABCR PO STA (23:59)
[2022-11-18] MEDS: SODIUM CHLORIDE 0.9% 1000ML 1,000 ML IV SCH ×2 (00:18→12:07)
[2022-11-18] MEDS: PIPERACILLIN/TAZOBACTAM 4.5 GM in DEXTROSE 5% 100 ML IV SCH (06:02)
[2022-11-18] MEDS: LEVOTHYROXINE SODIUM 200 MCG TABLET PO SCH (06:14)
[2022-11-18 06:47] LABS: Basophils # (auto) 0.06 K/uL (0-0.2); Basophils % (auto) 0.9 %; Eosinophils # (auto) 0.19 K/uL (0-0.50); Hematocrit (blood only) 35.8 % (37.0-47.0); Hemoglobin 11.8 g/dl (12.0-16.0); Immature Granulocytes # (auto) 0.04 K/uL (0.01-0.20); Immature Granulocytes % (auto) 0.6 %; Lymphocytes # (auto) 2.28 K/uL (1.2-3.4); Lymphocytes % (auto) 35.8 %; Mean Corpuscular Hemoglobin 28.9 pg (25.0-34.0); Mean Corpuscular Volume 87.5 fL (80.0-100.0); Monocytes # (auto) 0.65 K/uL (0.11-0.59); Monocytes % (auto) 10.2 %; Neutrophils # (auto) 3.15 K/uL (1.40-6.50); Neutrophils % (auto) 49.5 %; Platelet Count 457 K/uL (130-400); RDW Coefficient of Variation 12.7 % (11.5-14.5); RDW Standard Deviation 40.6 fL (36.4-46.3); Red Blood Count 4.09 M/uL (4.20-5.40); White Blood Count 6.37 K/ul (4.8-10.8)
[2022-11-18 06:59] LABS: BUN Creatinine Ratio 5.4 (10-20); Calcium 8.2 mg/dl (8.6-10.3); Creatinine Clr Calc Pharmacy 129.4 ml/min; Est GFR (African American) 118.3 ml/min; Est GFR (Non-African American) 102.1 ml/min; Magnesium 1.8 mg/dl (1.7-2.4); Potassium 3.3 mmol/L (3.5-5.1)
[2022-11-18] MEDS: LORazepam 0.5 MG TAB PO PRN (07:21)
[2022-11-18] MEDS ORDERED: POTASSIUM CHLORIDE CRTAB 20 MEQ TABCR PO STA (07:40)
[2022-11-18] MEDS: FOLIC ACID 1 MG TAB PO SCH (08:17)
[2022-11-18] MEDS: GABAPENTIN 100 MG CAP PO SCH (08:17)
[2022-11-18] MEDS: NICOTINE 14 MG/24 HR PATCH TD SCH (08:17)
[2022-11-18] MEDS: ENOXAPARIN INJ 40 MG/0.4 ML SYR SQ SCH (08:18)
--- NOTE | 2022-11-18 09:35 | Surgery Progress Note ---
Date of Service November 18, 2022 Assessment & Plan (1) Diverticulitis: (2) Sepsis: Plan 57 year-old female with history of Crohn's disease presented to ED with a few week history of intermittent abdominal pain with recent chills and nausea found to have sigmoid diverticulitis with associated fluid/abscess measuring 2.5 cm and leukocytosis of 19k. 11/18/2022 afebrile, vss leukocytosis resolved pain improving + bowel function subjectively bloated but not significantly distended on exam Plan: Continue conservative management . Would continue clears this am possible advance for lunch total course of 14 days of antibiotics. She is scheduled for her first colonoscopy next month with [facility]. This will need to be delayed given acute diverticulitis for another 6-8 weeks. Continue medical management possibly home this afternoon if tolerates advanced diet Dr. Hawkins has seen and examined pt, agrees with above. Admission and Anticipated Discharge Date Admission Date: November 16, 2022 Supervising Physician Co-Signing Physician Notes I have seen and examined the patient personally and agree with the above assess ment plan. She is adamant about going home today. We will advance her diet and switch her to oral antibiotics. She may be discharged to home later today as long as she tolerates her diet. Subjective feeling bloated this morning abdominal pain improving passing gas and liquid bowel movements this morning no n,v tolerated clear liquids yesterday Physical Exam Constitutional: WD/WN, vitals as above + well hydrated, + obese, cooperative and comfortable; no acute distress and not ill appearing Gastrointestinal (Abdomen): Inspection/Auscultation: abdomen normal to inspection and normal bowel sounds; abdomen not distended Percussion/Palpation: + abdomen tender (mild in the epigastrium) and abdomen soft; no guarding, abdomen not rigid and abdomen not firm Skin: no rashes, warm and dry Psychiatric: A+Ox3, euthymic affect Results & Data Vital Signs (Past 12 Hours) Vital Signs Temp Pulse Pulse Resp BP Pulse Ox O2 Del Method 11/18/22 07:48 36.7 C 76 13 122/80 95 Room Air 11/17/22 23:13 37.1 C 83 18 126/83 96 Room Air Laboratory Results 11/18/22 11/18/22 Range/Units 05:37 05:37 WBC 6.37 (4.8-10.8) K/ul RBC 4.09 L (4.20-5.40) M/uL Hgb 11.8 L (12.0-16.0) g/dl Hct 35.8 L (37.0-47.0) % MCV 87.5 (80.0-100.0) fL MCH 28.9 (25.0-34.0) pg MCHC 33.0 (32.0-36.0) g/dL RDW Std Deviation 40.6 (36.4-46.3) fL RDW Coeff of Hollie 12.7 (11.5-14.5) % Plt Count 457 H (130-400) K/uL MPV 9.0 L (9.4-12.4) fL Immature Gran % (Auto) 0.6 % Neut % (Auto) 49.5 % Lymph % (Auto) 35.8 % [place] % (Auto) 10.2 % Eos % (Auto) 3.0 % Baso % (Auto) 0.9 % Neut # (Auto) 3.15 (1.40-6.50) K/uL Lymph # (Auto) 2.28 (1.2-3.4) K/uL [place] # (Auto) 0.65 H (0.11-0.59) K/uL Eos # (Auto) 0.19 (0-0.50) K/uL Baso # (Auto) 0.06 (0-0.2) K/uL Immature Gran # (Auto) 0.04 (0.01-0.20) K/uL Sodium 142 (136-145) mmol/L Potassium 3.3 L (3.5-5.1) mmol/L Chloride 110 H (98-107) mmol/L Carbon Dioxide 25 (21-32) mmol/L Anion Gap 7 (3-11) BUN 3 L (6-23) mg/dl Creatinine 0.56 L (0.6-1.2) mg/dl Est Cr Clr Drug Dosing 129.4 ml/min Est GFR ( Amer) 118.3 ml/min Est GFR (Non-Af Amer) 102.1 ml/min BUN/Creatinine Ratio 5.4 L (10-20) Glucose 98 (70-99(Fasting)) mg/dl Calcium 8.2 L (8.6-10.3) mg/dl Magnesium 1.8 (1.7-2.4) mg/dl
--- NOTE | 2022-11-18 13:49 | Discharge Summary ---
Discharge Summary Date of Service November 18, 2022 Notes For Next Care Provider Patient is scheduled for colonoscopy on 12/07; however, this will need to be delayed additional 4 to 6 weeks due to current acute diverticulitis. A message was sent to [employer] for this to be arranged, but would make sure it is rescheduled. Recommend repeat BMP at follow-up due to patient having low potassium while inpatient. Hospitalized secondary to sepsis, acute diverticulitis with associated abscess. Treated with bowel rest, IV fluids and IV antibiotics. At discharge on additional 12-day course of ciprofloxacin and Flagyl. Medication Changes From Visit Ciprofloxacin 500 mg twice daily for additional 12 days. Next dose evening of 11/18/2022. Metronidazole 500 mg 3 times a day for additional 12 days. Next dose evening of 11/18/2022. Florastor 250 mg daily, probiotic for GI protection. Admission HPI Per Admitting Provider History obtained from patient and records. Medical history significant for IBD, hyperlipidemia, hypothyroidism, COPD, mood disorder, past alcohol abuse, ongoing tobacco abuse. Last confinement March 2022 under psychiatry service for major depression. Two months history of intermittent achy abdominal pain with poor appetite. No fever, no chills, no chest pain, no SOB. No black/bloody stools. Worsening symptoms the last couple of weeks with watery some nausea, no emesis. Diarrhea. MEDICAL HISTORY: As above. SURGERIES: Tubal ligation. FH : BTL, dental surgery PERSONAL AND SOCIAL HISTORY: 1 pack daily, past alcohol abuse, disabled Admission Exam Per Admitting Provider GENERAL: Slightly uncomfortable, obese, no respiratory distress SKIN: Normal color, warm HEENT: [place] palpebral conjunctivae, no ptosis, dry buccal mucosa NECK : Supple, short neck, no tenderness CHEST : Decreased breath sounds, occasional expiratory wheezes, no tenderness HEART : RRR, no obvious murmurs ABDOMEN: distention, hypogastric tenderness EXTREMITIES : Minimal LE swelling, no LE tenderness, no other conspicuous deformities noted NEUROLOGIC : Coherent, no facial asymmetry, no other gross focality Principal Dx & Hospital Course #1 = Principal Diagnosis (1) Sepsis: Plan This is a 57-year-old female who has significant past medical history of depression, tobacco abuse, COPD, prediabetes, hyperlipidemia, history of alcohol abuse who presented to ED secondary to abdominal pain and poor appetite. CT abdomen pelvis on admission revealed acute sigmoid diverticulitis with an adjacent fluid collection/abscess measuring up to 2.5 cm medial and superior to the sigmoid colon which is also in contact with the adjacent small bowel. Associated reactive ileus and inflammatory change of the adjacent small bowel was also noted. Recommend follow-up colonoscopy. Patient is already scheduled for colonoscopy on December 07, 2022 however due to current episode of acute diverticulitis this will need to be delayed additional 4 to 6 weeks. She was initially treated with conservative measures including bowel rest, IV fluids and IV antibiotics. Slowly her abdominal pain resolved and her diet was upgraded to a low fiber diet. On day of discharge she was tolerating low fiber diet, she was hemodynamically stable and afebrile. She technically met sepsis criteria on admission and this has since resolved as well. Her white blood cell count was back to normal. She did have hypokalemia throughout hospital stay. On day of discharge her potassium was 3.3 and she did receive 40 mEq of oral potassium supplementation at this time. Patient will need repeat BMP as outpatient to follow potassium levels. She will also need outpatient colonoscopy. Discussed patient's case with Bety Nelson of [facility] who is going to reach out to [facility] scheduling to push back her colonoscopy. Her other chronic medical conditions remained stable during hospitalization. She will be discharged on course of ciprofloxacin and Flagyl for additional 12 days. She was educated to maintain a low fiber diet until instructed to advance to normal to high-fiber diet by PCP or GI team. She will be provided with patient education packet regarding low fiber diet. She is also encouraged to take probiotic while on antibiotic therapy. On day of discharge she was very flat affect and adamant to leave at 3 PM. Her diet was advanced at lunch to low fiber and she did tolerate this without any further abdominal pain or nausea. She does continue to have loose stool and was instructed if this worsens, she develops blood or worsening abdominal pain or fever she is immediately to return back to ED. She states that she is leaving at 3 PM whether medically cleared or not and due to tolerating lunch felt she is medically stable for discharge with close PCP follow-up. Discharge Exam Gen: WD/WN, NAD, A&O x3, flat affected, adamant about going home HEENT: Normocephalic, atraumatic, conjunctivae moist, sclerae anicteric, mucous membranes moist. Lung: Clear to Auscultation bilaterally, no wheezes/rales/rhonchi Heart: Regular rate, regular rhythm, no murmurs, rubs, or gallops Abdomen: Obese abdomen but soft, NT, ND +BS x 4 Extremities: No edema Skin: Warm, no rash, negative turgor. Updated Medication List Medication Instructions Recorded Confirmed Type levothyroxine 200 mcg tablet 200 mcg PO QAM 02/23/21 11/18/22 History albuterol sulfate 90 mcg/actuation 2 puff inhalation Q4 PRN Shortness 11/16/22 11/16/22 History aerosol inhaler Of Breath Or Wheezing folic acid 1 mg PO DAILY 11/16/22 11/16/22 History vilazodone 40 mg tablet 40 mg PO DAILY 11/16/22 11/16/22 History Saccharomyces boulardii 250 mg 250 mg PO DAILY #14 caps 11/18/22 Rx capsule (Florastor) ciprofloxacin HCl 500 mg tablet 500 mg PO Q12H 12 days #24 tabs 11/18/22 Rx (Cipro) gabapentin 100 mg capsule 100 mg PO BID 11/18/22 11/18/22 History metronidazole 500 mg tablet 500 mg PO Q8H 12 days #36 tabs 11/18/22 Rx Hospital Stay Data Consultations 11/16/22 06:27 ED Decision to Admit Stat 11/16/22 07:23 Consult General Surgery Routine Diagnostic Imagining Performed Abdomen/Pelvis CT 11/16/22 04:27 Exam(s): CT ABDOMEN + PELVIS With Contrast IV Amt: 86 ML OPTIRAY 350 EXAM: CT Abdomen and Pelvis With Intravenous Contrast CLINICAL HISTORY: Reason for exam: abdominal pain. TECHNIQUE: Axial computed tomography images of the abdomen and pelvis with intravenous contrast. CTDI is 19.98 mGy and DLP is 1061.3 mGy-cm. Automated exposure control was utilized for the study. A dose lowering technique was utilized adhering to the principles of ALARA. CONTRAST: Patient received 86 ML OPTIRAY 350 of IV contrast COMPARISON: No relevant prior studies available. FINDINGS: Lung bases: Unremarkable. No mass. No consolidation. ABDOMEN: Liver: Hepatomegaly and Hepatic steatosis. Gallbladder and bile ducts: Cholelithiasis without ductal dilation. Pancreas: Unremarkable. No mass. No ductal dilation. Spleen: Unremarkable. No splenomegaly. Adrenals: Unremarkable. No mass. Kidneys and ureters: Unremarkable. No solid mass. No hydronephrosis. Stomach and bowel: Prominent wall thickening and inflammatory change of the sigmoid colon most suggestive of diverticulitis. Adjacent fluid collection/abscess measuring up to 2.5 cm medial and superior to the sigmoid colon which is also in contact with the adjacent small. Associated reactive ileus and inflammatory change of the adjacent small bowel. No pneumatosis. PELVIS: Appendix: No findings to suggest acute appendicitis. Bladder: Unremarkable. No mass. Reproductive: Unremarkable as visualized. ABDOMEN and PELVIS: Intraperitoneal space: No free air. No significant fluid collection. Bones/joints: Multilevel lumbar spondylosis. No acute fracture. No dislocation. Soft tissues: Unremarkable. Vasculature: No abdominal aortic aneurysm. Lymph nodes: Few prominent mesenteric nodes in the pelvis, likely reactive. IMPRESSION: Findings most consistent with prominent acute sigmoid diverticulitis. Adjacent fluid collection/abscess measuring up to 2.5 cm medial and superior to the sigmoid colon which is also in contact with the adjacent small bowel. Associated reactive ileus and inflammatory change of the adjacent small bowel. No pneumatosis. Follow-up colonoscopy after resolution of symptoms suggested to exclude underlying lesion/process. Electronically signed by: Devin Sorto M.D. 11/16/22 05:54 AM Chest X-Ray 11/16/22 07:20 SINGLE VIEW CHEST CLINICAL HISTORY: Wheezing. FINDINGS: An AP, portable, upright chest radiograph is compared to study dated 03/08/2014 and correlated with chest CT dated 03/11/2014. The examination is degraded by portable technique and apical lordotic positioning. The cardiomediastinal silhouette is unremarkable. Chronic interstitial thickening is similar to previous. There is mild bibasilar scarring/atelectasis. No airspace consolidation or large pleural effusion is identified. No pneumothorax is seen. The skeletal structures are osteopenic. The bony thorax is grossly intact. IMPRESSION: No acute cardiopulmonary abnormality is identified. ACT 112: Negative or not required by law. Electronically signed by: Todd Evans M.D. 11/16/2022 7:46 AM Pending Results Patient Have Any Pending Studies at Discharge: No Discharge Instructions Given to Patient (Per Discharging Provider) MEDICATION CHANGES: Ciprofloxacin 500 mg twice daily for additional 12 days. Next dose evening of 11/18/2022. Metronidazole 500 mg 3 times a day for additional 12 days. Next dose evening of 11/18/2022. Florastor 250 mg daily, probiotic for GI protection. SUMMARY OF TEST RESULTS: You were admitted to hospital secondary to sepsis due to acute diverticulitis with abscess. You were treated with bowel rest, IV fluids and IV antibiotics. Your symptoms gradually improved over hospitalization. Your potassium was low during hospital stay and this was replaced. PENDING TEST RESULTS: None RECOMMENDATIONS FOR FOLLOW-UP: Please follow-up with primary care provider as scheduled. Your current colonoscopy is scheduled for November,; however, this will need to be delayed an additional 4 to 6 weeks. I have reached out to [facility] who will call to reschedule your colonoscopy. Complete antibiotics in its entirety. Recommend a low fiber diet. Document to be provided on low fiber foods. Recommend discussing with GI at time of colonoscopy about increasing fiber in diet. Recommend repeat blood work at your primary care appointment to monitor your po tassium as it was low during hospital stay. If you develop further abdominal pain, fever, nausea, vomiting, worsening diarrhea or blood in stool please contact PCP or seek ED immediately. Recommend tobacco cessation. Recommend alcohol cessation. Patient educated to avoid alcohol while on antibiotic metronidazole as it could cause her to react with significant nausea and vomiting. OTHER INSTRUCTIONS: Seek medical attention if you have: * temperature above 101 * chest pain or trouble breathing * abdominal pain, nausea, vomiting * diarrhea, dark stools or bloody stools * any unanswered questions or concerns Call 911 if symptoms are severe. Please take good care of yourself. It has been a pleasure taking care of you. Please take care of yourself. If you have any questions regarding your recent hospitalization please contact [facility] and request [facility] @ [phone]. Total Time Total Time Spent Total Time Spent (In Minutes): 45 minutes Supervising Physician Co-Signing Physician Notes Attending addendum: The patient was seen and examined in medical floor She has been feeling much better and denies any abdominal pain, nausea or vomiting She has been tolerating regular diet and wants to go home Denies any other symptoms On examination Lying in bed comfortably Hemodynamically stable Abdomensoft, not distended, nontender and bowel sound present Her labs, imaging studies and medications on discharge reviewed Agree with assessment plan as outlined above by Senia kim
[2022-11-19 15:13] LABS: 7-Aminoclonaz, Confirm NEGATIVE ng/mL (<25); Hydro-Alp Ur, GC/MS NEGATIVE ng/mL (<25); Hydroxyethylflurazepam, Conf NEGATIVE ng/mL (<50); Hydroxymidazolam Ur, GC/MS NEGATIVE ng/mL (<50); Hydroxytriazolam NEGATIVE ng/mL (<50); Lorazepam, Ur GC/MS NEGATIVE ng/mL (<50); Nordiazepam, Confirm 70 ng/mL (<50); Oxazepam Ur, GC/MS 181 ng/mL (<50); Temazepam, Confirm 172 ng/mL (<50)
== END 2022-11-18 14:24 | disposition home or self-care (01) | DRG 872 ==
LOC: ED 03:14 → 3W 07:22